=== PATIENT | female | born 1935 | race Caucasian/White ===

== ENCOUNTER → 2016-08-09 | Outpatient (CLI) | payer OTHER, MEDICARE ==
[~2016-08-09] MED LIST: ADULT LOW DOSE81 MG PO; ALEVE220 MG PO; ALLERGY RELIEF25 M2 PO; ALLOPURINOL 30300 M1 PO; ASPIR 8181 MG PO; ASPIRIN; ASPIRIN EC81 M1 PO; ATENOLOL 100MG100 M2 PO; ATENOLOL 100MG100 MG PO; ATENOLOL 50 MG50 M1 PO; ATENOLOL 50MG T50 M1 PO; AUGMENTIN 875-1 EACH PO; AVAPRO300 MG PO; AVAPRO75 MG PO; AYR SALINE50 ML NASAL; BAYER CHEWABLE81 MG PO; BENADRYL25 MG PO; BENICAR 5 MG5 M1 PO; BENICAR20 MG PO; BICARSIM80 MG PO; BIOTIN1 M1 PO; BLINK TEARS OPHTHALMIC; CIPRO500 MG PO; CLOBETASOL; COLACE100 MG PO; COQ-10100 MG PO; COZAAR 25 MG TA25 M1 PO; COZAAR 50 MG TA50 M2 PO; DEMADEX20 MG PO; DOXYCYCLINE 10100 MG PO; EFFIENT10 MG PO; ENOXAPARIN60 MG/0.1 SUBQ; EXFORGE; EXFORGE PO; FERROUS SULFATE PO; FLAGYL500 MG PO; FUROSEMIDE 20 M20 M1 PO; GABAPENTIN 100100 MG PO; GAS-X125 MG PO; HYDROCHLOROTHIA25 M2 PO; HYDROCODONE-AP1 EAC6 PO; IMDUR 60 MG TAB60 M1 PO; IMODIUM A-D2 MG PO; IRBESARTAN300 MG PO; IRON325 PO; ISOSORBIDE MONO30 M1 PO; K-DUR 20 MEQ T20 MEQ PO; KEFLEX250 MG PO; LASIX 20 MG TAB20 MG PO; LASIX 40 MG TAB40 M1 PO; LEVAQUIN 500 M500 M2 PO; LEVOTHYROXIN0.075 MG PO; LEVOTHYROXINE0.05 MG PO; LEVOTHYROXINE500 MCG PO; LIVALO2 MG; MACRODANTIN100 MG PO; MAGOX 400400 MG PO; MOBIC15 MG; MOBIC15 MG PO; MOBIC7.5 MG; MORPHINE 44 MG/1 ML IV PUSH; MULTIVITAMINS PO; MULTIVITAMINS1 EAC7 PO; NABUMETONE 500500 M1 PO; NEURONTIN 300300 M1 PO; NIACIN SR 250250 MG PO; NITROGLYCERIN0.4 MG SUBLING; NITROSTAT0.4 MG SL; NYSTATIN-TRIAMC15 GM; OMEPRAZOLE 20 M20 M1 PO; OMEPRAZOLE20 MG PO; OXCARBAZEPINE150 MG PO; PANTOPRAZOLE SO40 M1 PO; PLAVIX 75 MG TA75 M1 PO; POTASSIUM20 PO; PRALUENT P75 MG/1 ML SQ; PREDNISONE 10 M10 M1 PO; PREDNISONE 10 M10 MG PO; PROBIOTIC1 EAC1 PO; PROTONIX40 M1 PO; TIZANIDINE HCL 22 M1 PO; TRAMADOL 50 MG50 MG PO; TRIAMTERENE-HC1 EAC3 PO; TRILEPTAL150 MG PO; TYLENOL325 MG PO; ULTRAM 50MG TAB50 MG PO; XOPENEX 0.63 MG/3 M1 INH; ZOFRAN 4 MG ORAL4 MG DISSOLVE
== END ==
LOC: RAD 01:05
DX: C50.912 Malignant neoplasm of unspecified site of left female breast (principal)

== ENCOUNTER → 2016-11-02 | Outpatient (CLI) | payer OTHER, MEDICARE ==
[~2016-11-02] VITALS: Ht 152.4 cm; Wt 82.2 kg
[~2016-11-02] MED LIST changes: +AVAPRO 150 MG150 MG PO; +NEURONTIN100 MG PO
--- NOTE | ~2016-11-02 | HPC ---
[facility] [place] [address] PAIN MANAGEMENT CONSULTATION Name: JACK FAN Room #: REG CLЕлена Albert#: [id number] Admission: 11/02/16 Attend Phys: Rafi Laguerre DO Discharge: Date of : 34 Report #: [id number] THIS REPORT FOR: //name// CC: Ghassan Laguerre DATE OF SERVICE: 11/02/2016 The patient is a pleasant 81-year-old female, prior seen for symptomatic lumbar radiculopathy, component of neuropathic pain requiring complex medication management. She had had a lumbar epidural injection back in January with about 60% improvement of baseline pain. On 08/18/2016, she had a repeat injection at L5-S1. We continued Trileptal 150 mg at bedtime at that time. This was for more neuropathic component, bilateral lower extremities. The patient returns to pain clinic today. We had a prolonged visit reviewing therapeutic options. In the interval since I last saw her, lumbar radicular pain did get better following the injection, but with out any antecedent trauma nor overuse, she has developed pain in a little different pattern. This is more in the left hip, anterior thigh. She uses a cane in her right hand for balance, but mostly when she is outside at the home; inside the home, she gets about fairly well. She takes tramadol p.r.n. for pain. She has been stable on oxcarbazepine for neuropathic pain component bilateral lower extremities. We had switched from gabapentin due to some lower extremity swelling. She subsequently was worked up by cardiovascular consultants and found some atherosclerotic peripheral vascular disease, which was addressed. She has now been informed by her insurance company that they will no longer pay for the oxcarbazepine. She notes that the burning dysesthesia in her feet has gotten better with oxcarbazepine. We elected to trial rotating back to gabapentin. A therapeutic equivalent should be roughly 300 mg at bedtime. I took the liberty of writing for 100 mg gabapentin 3 tablets at bedtime for a week, we may increase to 1 in the morning with 3 at night if needed. PHYSICAL EXAMINATION: Otherwise shows pleasant 81-year-old female, BMI is 35.4 kilograms per meter squared. Blood pressure is 149/67, pulse 72, respirations are 18. Alert and oriented to person, place and time, judged to be a reasonable historian. Rises from chair using armrest, modestly antalgic gait. Does have objective decreased left hip flexion strength about 3/5, all other muscle groups about 4/5. Patellar reflex diminished on the left compared to the right. Straight leg raise is negative. Jaspal test is negative. Diffuse tenderness across the low back. No discrete trigger points are noted. ASSESSMENT #1: Neuropathic pain, bilateral lower extremities requiring complex [facility] [address] [place] [address] PAIN MANAGEMENT CONSULTATION Name: JACK FAN ANN Room #: REG CL Bety#: [id number] Admission: 11/02/16 Attend Phys: Rafi Laguerre DO Discharge: Date of : 34 Report #: [id number] medication management. RECOMMENDATION: 1. Discontinue Trileptal (oxcarbazepine), we will reinstitute gabapentin 100 mg 3 tablets at bedtime for 1 week, increasing to 1 in the morning and 3 at night, dispensed 120 tablets with 2 refills. 2. Tramadol 50 mg as needed for pain, 1 tablet 2-3 times a day, limit 90 tablets with 2 refills. ASSESSMENT #2: Acute exacerbation of lumbar radiculopathy, a little more proximal pathology with more L3 distribution. RECOMMENDATION: 1. Lumbar epidural injection under fluoroscopy today at L2-L3. 2. Resume Plavix tomorrow, follow up simply as needed. PROCEDURE NOTE: Lumbar epidural injection under fluoroscopy. PROCEDURE NOTE: After both written and informed consent to include risk of spinal cord damage, increased pain, weakness and dural puncture, the patient was taken to the fluoroscopy suite, placed in the prone position. After sterile prep and drape, a skin wheal with lidocaine was raised. A 22-gauge epidural Tuohy needle was inserted in the midline at L2-L3 with good loss to resistance. Negative aspiration for cerebrospinal fluid or blood was noted. Then 1 mL of Omnipaque under biplanar fluoroscopy showed good spread within the epidural space. This was followed with 80 mg of triamcinolone plus 1 mL of 1.5% preservative-free Xylocaine, 0.5 mL Xylocaine was then injected to flush the needle; it was removed. The patient was monitored for an appropriate period of time and discharged in good and stable condition. <ELECTRONICALLY SIGNED> By: Rafi Laguerre DO 11/03/16 0704 1211 1439 Rafi Laguerre DO /nt
[2016-11-02 10:38] VITALS: BP 149/67
== END ==
LOC: PAIN 07:04
DX: M54.16 Radiculopathy, lumbar region (principal); I10 Essential (primary) hypertension; Z87.891 Personal history of nicotine dependence

== ENCOUNTER 2017-01-31 19:22 | Inpatient (IN) | payer OTHER, MEDICARE ==
[~2017-01-31] VITALS: Ht 152.4 cm; Wt 77.0 kg
--- NOTE | ~2017-01-31 | 2DMMODE ---
[facility] [address] [place] [address] 2 D/M-MODE ECHOCARDIOGRAM Name: JACK FAN ANN Room #: 451-P ADM IN M.R.#: [id number] Admission: 01/31/17 Attend Phys: Winsome Garcia Discharge: Date of : 34 Date of Service: 02/01/17 1254 Report #: [id number] THIS REPORT FOR: //name// APPROVED REPORT Study performed: 02/01/2017 09:18:20 EXAM: Comprehensive 2D, Doppler, and color-flow Echocardiogram Patient Location: Echo lab Room #: [facility] Status: routine Other Information Study Quality: Technically Difficult Indications Syncope 2D Dimensions RVDd: 32.37 mm LVEF(%): 62.56 (>50%) IVSd: 11.40 (7-11mm) LVOT Diam: 17.92 (18-24mm) LVDd: 40.34 mm PWd: 10.85 (7-11mm) Ascending Ao: 29.15 (22-36mm) LVDs: 26.89 (25-40mm) Aortic Root: 28.47 mm IVC: 1.70 mm Terry's LVEF: 62.56 % Volumes Left Atrial Volume (Systole) Single Plane 4CH: 66.03 mL Single Plane 2CH: 44.72 mL LA ESV Index: 33.00 mL/m2 Aortic Valve AoV Peak Shaan.: 1.24 m/s AO Peak Gr.: 6.15 mmHg LVOT Max P.86 mmHg LVOT Max V: 0.98 m/s SILVINA Vmax: 2.00 cm2 Mitral Valve E/A Ratio: 0.9 MV Decel. Time: 326.38 ms MV E Max Shaan.: 1.15 m/s MV A Shaan.: 1.35 m/s MV PHT: 94.65 ms IVRT: 106.11 ms [facility] [place] [address] 2 D/M-MODE ECHOCARDIOGRAM Name: JACK FAN Room #: 451-P [facility] IN .R.#: [id number] Admission: 01/31/17 Attend Phys: Winsome Garcia Discharge: Date of : 34 Date of Service: 02/01/17 1254 Report #: [id number] Pulmonary Valve PV Peak Shaan.: 1.05 m/s PV Peak Gr.: 4.38 mmHg Pulmonary Vein P Vein S: 0.45 m/s P Vein A: 0.19 m/s P Vein D: 0.40 m/s P Vein A Dur.: 106.1 msec P Vein S/D Ratio: 1.13 Tricuspid Valve TR Peak Hsaan.: 2.84 m/s RAP Estimate: 5.00 mmHg TR Peak Gr.: 32.34 mmHg PA Pressure: 37.00 mmHg Left Ventricle The left ventricle is normal size. There is normal left ventricular wall thickness. Left ventricular systolic function is mildly decreased. LVEF is 45%. Grade I - abnormal relaxation pattern. Right Ventricle The right ventricle is normal size. The right ventricular systolic function is normal. Atria The left atrium size is mildly dilated The right atrium size is normal. Aortic Valve Aortic valve leaflets are thickened. No aortic regurgitation. There is no aortic valvular stenosis. Mitral Valve Heavy mitral annular calcification, leaflet thickening Mild mitral regurgitation. No evidence of mitral valve stenosis. Tricuspid Valve The tricuspid valve is normal in structure. There is mild tricuspid regurgitation. The right atrial pressure is estimated at 5 mmHg. There is mild pulmonary hypertension with an estimated PAP of 37 mmHg. Pulmonic Valve The pulmonary valve is normal in structure. Trace pulmonic regurgitation. Great Vessels [facility] [address] [place] [address] 2 D/M-MODE ECHOCARDIOGRAM Name: JACK FAN Room #: 451-P [facility] IN M.R.#: [id number] Admission: 01/31/17 Attend Phys: Winsome Garcia Discharge: Date of : 34 Date of Service: 02/01/17 1254 Report #: [id number] The aortic root is normal in size. IVC is normal in size and collapses >50% with inspiration. Pericardium There is no pericardial effusion. <Conclusion> Left ventricular systolic function is mildly decreased. LVEF is 45%. Hypokinesis of mid to distal inferior wall. Grade I - abnormal relaxation pattern. The left atrium size is mildly dilated Aortic valve leaflets are thickened. No aortic valvular stenosis or regurgitation. Heavy mitral annular calcification, mild leaflet thickening. Mild mitral regurgitation. Pulmonary artery pressure of 40mmHg There is no pericardial effusion. <ELECTRONICALLY SIGNED> By: Mello Ramirez MD, [facility] 02/01/17 1254 1254 1254 Mello Ramirez MD, FACC /INF
--- NOTE | ~2017-01-31 | EKG ---
[address] [place] [address] ELECTROCARDIOGRAM REPORT Name: JACK FAN Room #: 451-P ADM IN M.R.#: [id number] Admission: 01/31/17 Attend Phys: Gerard Delvalle MD Discharge: Date of : 34 Report #: [id number] THIS REPORT FOR: //name// [facility] Test Date: 2017-02-01 Test Time: 04:23:13 Pat Name: JACK FAN Department: Room: [facility] P Gender: F Physician Practice Manager: leatha : 1935 Requested By: Mariah Kimbrough Order Number: [id number] MD: Mello Ramirez Measurements Intervals [place] Rate: 73 P: 40 TN: 226 QRS: 0 QRSD: 136 T: 139 QT: 426 QTc: 470 Interpretive Statements Sinus rhythm Prolonged TN interval Probable left atrial enlargement Nonspecific intraventricular conduction delay ST and T wave abnormality Compared to ECG 01/12/2017 02:05:56 No significant change was found Electronically Signed On 02-01-2017 17:36:06 CDT by Mello Ramirez [email or web address] <ELECTRONICALLY SIGNED> By: Mello Ramirez MD, [facility] 02/01/17 1736 0423 0423 Mello Ramirez MD, [facility] /EPI
--- NOTE | ~2017-01-31 | EKG ---
[place] [address] [facility] [email or web address] [address] ELECTROCARDIOGRAM REPORT Name: JACK FAN ANN Room #: 451-P ADM IN M.R.#: [id number] Admission: 01/31/17 Attend Phys: Gerard Delvalle MD Discharge: Date of : 34 Report #: [id number] THIS REPORT FOR: //name// [facility] ED Test Date: 2017-01-31 Test Time: 19:30:50 Pat Name: JACK FAN Department: Room: [facility] Gender: F It Service Delivery Manager: ROWAN : 1935 Requested By: Lawrence Yang Order Number: [id number] MD: Mello Ramirez Measurements Intervals [place] Rate: 67 P: -32 MS: 201 QRS: -3 QRSD: 109 T: 133 QT: 458 QTc: 484 Interpretive Statements Sinus rhythm ST and T wave abnormality Borderline prolonged QT interval Compared to ECG 01/12/2017 02:05:56 ST (T wave) deviation less pronounced Electronically Signed On 02-01-2017 17:28:52 CDT by Mello Ramirez [email or web address] <ELECTRONICALLY SIGNED> By: Mello Ramirez MD, [facility] 02/01/17 1728 29 29 Mello Ramirez MD, [facility] /EPI
[~2017-01-31 19:22] MED LIST changes: +ALLOPURINOL 30300 M2 PO; +ANTI-GAS40 MG/0.6 PO; +CEFUROXIME250 MG PO; +OPIUM TINC10 MG/1 M1 PO
[2017-01-31 19:56] LABS: ABSOLUTE NEUTROPHILS 6.9 thou/uL (1.4-8.2); BASOPHILS 0.7 % (0.0-2.0); EOSINOPHILS 2.7 % (0.0-3.0); HEMATOCRIT 30.1 % (37.0-47.0); HEMOGLOBIN 10.4 gm/dL (12.0-15.0); LYMPHOCYTES 15.8 % (24.0-44.0); MCH 30.7 pg (26.0-34.0); MCHC 34.8 g/dL (28.0-37.0); MCV 88.5 fL (80.0-100.0); PLATELET COUNT 250 thou/uL (150-400); POLYS 68.8 % (36.0-66.0); RDW 15.7 % (10.5-14.5)
[2017-01-31 19:58] LABS: MANUAL DIFF NO
[2017-01-31 20:11] LABS: CALCIUM 9.3 mg/dL (8.5-10.1); CREATININE 2.7 mg/dL (0.6-1.0); POTASSIUM 4.1 mmol/L (3.5-5.1)
[2017-01-31 20:18] LABS: ALBUMIN 3.6 g/dL (3.4-5.0); DIRECT BILIRUBIN 0.1 mg/dL (<0.1-0.3); TOTAL BILIRUBIN 0.2 mg/dL (<0.1-1.0); TOTAL PROTEIN 7.3 g/dL (6.4-8.2); TROPONIN-I 0.21 ng/mL (<0.04-0.07)
[2017-01-31] MEDS ORDERED: TRAMADOL 50 MG50 MG PO (21:45)
[2017-01-31] MEDS ORDERED: LOMOTIL TABLET1 EACH PO (21:47)
[2017-01-31 21:58] VITALS: BP 147/45
[2017-01-31 22:52] VITALS: BP 152/58
[2017-02-01 04:51] VITALS: BP 150/65
[2017-02-01 06:32] LABS: HEMATOCRIT 30.5 % (37.0-47.0); HEMOGLOBIN 10.4 gm/dL (12.0-15.0); MCH 30.7 pg (26.0-34.0); MCHC 34.1 g/dL (28.0-37.0); MCV 90.1 fL (80.0-100.0); RBC 3.38 mil/uL (4.20-5.00); RDW 15.6 % (10.5-14.5); WBC 8.5 thou/uL (4.0-11.0)
[2017-02-01 06:39] LABS: CALCIUM 8.9 mg/dL (8.5-10.1); CREATININE 2.1 mg/dL (0.6-1.0); POTASSIUM 4.3 mmol/L (3.5-5.1)
[2017-02-01 07:45] VITALS: BP 120/50
[2017-02-01 11:38] VITALS: BP 140/68
[2017-02-01 15:40] LABS: URINE BILIRUBIN NEGATIVE (Negative); URINE BLOOD 2+ (Negative); URINE COLOR YELLOW; URINE GLUCOSE-RANDOM* NEGATIVE (Negative); URINE KETONES NEGATIVE (Negative); URINE NITRITE NEGATIVE (Negative); URINE PROTEIN (DIPSTICK) TRACE (Negative); URINE SPECIFIC GRAVITY <= 1.005 (1.003-1.035); URINE UROBILINOGEN 0.2 E.U./dl (0.2-1.0)
[2017-02-01 15:49] LABS: BACTERIA >30 Many /HPF (None Seen); CASTS None Seen /LPF (None Seen); CRYSTALS None Seen /LPF (None Seen); SQUAMOUS 0-3 Few /LPF (0-3); URINE WBC >25 Many /HPF (0-5)
[2017-02-01 16:03] VITALS: BP 139/61
[2017-02-01 18:58] VITALS: BP 129/43
[2017-02-02 00:46] VITALS: BP 111/42
[2017-02-02 04:21] VITALS: BP 144/50
[2017-02-02 07:14] VITALS: BP 134/49
[2017-02-02 09:29] LABS: CALCIUM 8.9 mg/dL (8.5-10.1); CREATININE 1.2 mg/dL (0.6-1.0); POTASSIUM 3.9 mmol/L (3.5-5.1)
[2017-02-02 11:30] VITALS: BP 125/81
[2017-02-02] MEDS ORDERED: LEVAQUIN 250 M250 MG PO (14:48)
[2017-02-02 14:52] VITALS: BP 125/81
[2017-02-05] MEDS ORDERED: SIMETHICON CHEW80 M1 PO (16:04)
== END 2017-02-02 16:31 | disposition home health service (06) | DRG 683 ==
LOC: ER 19:22 → EROBS 21:08 → 4W 21:08
PROVIDERS: Family Medicine; Nurse Practitioner; Physician Assistant
DX: N17.9 Acute kidney failure, unspecified (principal); I13.0 Hypertensive heart and chronic kidney disease with heart failure and stage 1 through stage 4 chronic kidney disease, or unspecified chronic kidney disease; I50.32 Chronic diastolic (congestive) heart failure; E87.1 Hypo-osmolality and hyponatremia; E86.1 Hypovolemia; E11.65 Type 2 diabetes mellitus with hyperglycemia; N18.9 Chronic kidney disease, unspecified; E11.22 Type 2 diabetes mellitus with diabetic chronic kidney disease; I25.10 Atherosclerotic heart disease of native coronary artery without angina pectoris; I48.0 Paroxysmal atrial fibrillation; E78.00 Pure hypercholesterolemia, unspecified; E11.51 Type 2 diabetes mellitus with diabetic peripheral angiopathy without gangrene; E03.9 Hypothyroidism, unspecified; E78.5 Hyperlipidemia, unspecified; E86.0 Dehydration; K21.9 Gastro-esophageal reflux disease without esophagitis; M19.90 Unspecified osteoarthritis, unspecified site; Z93.2 Ileostomy status; Z87.891 Personal history of nicotine dependence; Z90.49 Acquired absence of other specified parts of digestive tract; Z95.1 Presence of aortocoronary bypass graft; Z85.828 Personal history of other malignant neoplasm of skin; Z85.3 Personal history of malignant neoplasm of breast; Z87.442 Personal history of urinary calculi; Z79.82 Long term (current) use of aspirin; Z79.899 Other long term (current) drug therapy; Z95.5 Presence of coronary angioplasty implant and graft; Z91.040 Latex allergy status; Z88.2 Allergy status to sulfonamides; Z91.048 Other nonmedicinal substance allergy status; Z81.1 Family history of alcohol abuse and dependence; Z82.49 Family history of ischemic heart disease and other diseases of the circulatory system; Z82.3 Family history of stroke
CPT/HCPCS: 10045

== ENCOUNTER → 2017-02-05 | Outpatient (CLI) | payer OTHER, MEDICARE ==
[~2017-02-05] MED LIST changes: +LEVAQUIN 250 M250 MG PO; +LOMOTIL TABLET1 EACH PO; +SIMETHICON CHEW80 M1 PO
[2017-02-05 12:42] LABS: HEMATOCRIT 25.6 % (37.0-47.0); HEMOGLOBIN 8.7 gm/dL (12.0-15.0); MCH 30.9 pg (26.0-34.0); MCV 90.8 fL (80.0-100.0); RBC 2.81 mil/uL (4.20-5.00); WBC 9.5 thou/uL (4.0-11.0)
[2017-02-05 12:49] LABS: CALCIUM 8.7 mg/dL (8.5-10.1); CREATININE 1.7 mg/dL (0.6-1.0); POTASSIUM 4.4 mmol/L (3.5-5.1)
[2017-02-05 15:44] VITALS: BP 119/50
== END ==
LOC: OPONC 06:28
PROVIDERS: Family Medicine
DX: E86.0 Dehydration (principal)
CPT/HCPCS: 27000

== ENCOUNTER → 2017-02-07 | Outpatient (CLI) | payer OTHER, MEDICARE ==
[2017-02-07 09:20] VITALS: BP 108/39
[2017-02-07 10:04] LABS: HEMATOCRIT 26.1 % (37.0-47.0); HEMOGLOBIN 8.9 gm/dL (12.0-15.0); MCH 30.9 pg (26.0-34.0); MCV 90.9 fL (80.0-100.0); RBC 2.87 mil/uL (4.20-5.00); RDW 16.3 % (10.5-14.5); WBC 8.6 thou/uL (4.0-11.0)
[2017-02-07 10:19] LABS: ALBUMIN 3.1 g/dL (3.4-5.0); CALCIUM 8.6 mg/dL (8.5-10.1); CREATININE 1.5 mg/dL (0.6-1.0); POTASSIUM 4.5 mmol/L (3.5-5.1); TOTAL BILIRUBIN 0.2 mg/dL (<0.1-1.0); TOTAL PROTEIN 5.9 g/dL (6.4-8.2)
== END ==
LOC: OPONC 00:41
PROVIDERS: Family Medicine
DX: E86.0 Dehydration (principal)

== ENCOUNTER → 2017-02-09 | Outpatient (CLI) | payer OTHER, MEDICARE ==
[2017-02-09 09:45] VITALS: BP 115/46
== END ==
LOC: OPONC 01:05
DX: E86.0 Dehydration (principal); R55 Syncope and collapse

== ENCOUNTER → 2017-02-12 | Outpatient (CLI) | payer OTHER, MEDICARE ==
[2017-02-12 09:36] LABS: HEMATOCRIT 27.6 % (37.0-47.0); HEMOGLOBIN 9.5 gm/dL (12.0-15.0); MCH 31.2 pg (26.0-34.0); MCHC 34.4 g/dL (28.0-37.0); MCV 90.9 fL (80.0-100.0); RBC 3.03 mil/uL (4.20-5.00); RDW 16.8 % (10.5-14.5); WBC 10.2 thou/uL (4.0-11.0)
[2017-02-12 09:48] LABS: CALCIUM 8.1 mg/dL (8.5-10.1); CREATININE 1.6 mg/dL (0.6-1.0); POTASSIUM 3.9 mmol/L (3.5-5.1)
[2017-02-12 10:11] VITALS: BP 122/46
== END ==
LOC: OPONC 01:21
PROVIDERS: Family Medicine
DX: E86.0 Dehydration (principal); R55 Syncope and collapse

== ENCOUNTER → 2017-02-14 | Outpatient (CLI) | payer OTHER, MEDICARE ==
[~2017-02-14] MED LIST changes: +TYLENOL EXTRA500 MG PO
[2017-02-14 10:10] VITALS: BP 118/48
== END ==
LOC: OPONC 00:20
DX: E86.0 Dehydration (principal)

== ENCOUNTER → 2017-02-16 | Outpatient (CLI) | payer OTHER, MEDICARE ==
[~2017-02-16] VITALS: Ht 152.4 cm; Wt 80.3 kg
--- NOTE | ~2017-02-16 | HPC ---
[facility] [place] [address] PAIN MANAGEMENT CONSULTATION Name: JACK FAN Room #: REG CLЕлена Navarro.#: [id number] Admission: 02/16/17 Attend Phys: Rafi Laguerre DO Discharge: Date of : 34 Report #: [id number] THIS REPORT FOR: //name// CC: Ghassan Laguerre The patient is an 82-year-old female, prior seen in the pain clinic 11/02/2016. The patient is being treated for lumbar radiculopathy, neuropathic pain requiring complex medication management. She prior had an epidural injection back in January 2016, with overall improvement in baseline pain injection August 2016. We discontinued Trileptal at bedtime and started gabapentin due to some sedation issues. Continue tramadol for pain. I did epidural injection L2-L3 at that time. She returns to the pain clinic today noting that the injection at last visit afforded 80% relief. She was doing well, but she had surgery including an ileostomy 12/06/2016. She was hospitalized for dehydration subsequently, has a port in the right subclavian area. Reviewed her rather extensive interval history. She notes ongoing pain, left hip and groin and L3 distribution remains problematic. She is back taking oxcarbazepine 150 mg b.i.d. Discontinued gabapentin due to lack of efficacy. Continue with some tramadol for pain. PHYSICAL EXAMINATION: Shows an 82-year-old female, BMI is 34.6. Vital signs are stable. Rises from chair using armrest, moderately antalgic gait favoring the left leg with decreased left hip flexion strength and pain in L3 distribution. DIAGNOSTIC: Reviewed MRI from 12/26/2013. Moderate hypertrophic changes at L3-L4 with bilateral facet arthropathy causing left ____ neural foraminal narrowing. ASSESSMENT: Symptomatic lumbar radiculopathy by clinical exam and history. RECOMMENDATION: Lumbar epidural injection under fluoroscopy today, left midline at L3-L4. We will renew tramadol for pain and Trileptal for neuropathic pain component. Followup p.r.n. ASSESSMENT: Symptomatic lumbar radiculopathy. PROCEDURE: Lumbar epidural injection under fluoroscopy. PROCEDURE NOTE: After both written and informed consent to include risk of spinal cord damage, increased pain, weakness and dural puncture, the patient was taken to the fluoroscopy suite, placed in the prone position. After sterile prep and drape, a skin wheal with lidocaine was raised. A 22-gauge epidural Tuohy needle was inserted in the midline at L3-4 with good loss to resistance. Negative aspiration for cerebrospinal fluid or blood was noted. Then 1 mL of [facility] [address] [place] [address] PAIN MANAGEMENT CONSULTATION Name: BRENARMANDOJUAN ANTONIO Room #: BASIM Albert#: [id number] Admission: 02/16/17 Attend Phys: Rafi Laguerre DO Discharge: Date of : 34 Report #: [id number] Omnipaque under biplanar fluoroscopy showed good spread within the epidural space. This was followed with 80 mg of triamcinolone plus 1 mL of 1.5% preservative-free Xylocaine, 0.5 mL Xylocaine was then injected to flush the needle; it was removed. The patient was monitored for an appropriate period of time and discharged in good and stable condition. By: 1147 1356 Rafi Laguerre DO /nt
[2017-02-16 13:02] VITALS: BP 140/59
[2017-02-16 17:57] VITALS: BP 120/53
== END | disposition home or self-care (01) ==
LOC: OPONC 01:08 → PAIN 01:08 → OPONC 06:57
DX: M54.16 Radiculopathy, lumbar region (principal); Z68.34 Body mass index [BMI] 34.0-34.9, adult; M48.06 Spinal stenosis, lumbar region; G62.9 Polyneuropathy, unspecified; Z87.891 Personal history of nicotine dependence
CPT/HCPCS: 95000; 95001

== ENCOUNTER → 2017-02-19 | Outpatient (CLI) | payer OTHER, MEDICARE ==
[2017-02-19 09:45] VITALS: BP 150/64
[2017-02-19 10:34] LABS: HEMATOCRIT 24.9 % (37.0-47.0); HEMOGLOBIN 8.4 gm/dL (12.0-15.0); MCH 30.3 pg (26.0-34.0); MCHC 33.7 g/dL (28.0-37.0); MCV 89.9 fL (80.0-100.0); RBC 2.77 mil/uL (4.20-5.00); WBC 11.1 thou/uL (4.0-11.0)
[2017-02-19 10:52] LABS: ALBUMIN 3.5 g/dL (3.4-5.0); CALCIUM 7.4 mg/dL (8.5-10.1); CREATININE 1.7 mg/dL (0.6-1.0); POTASSIUM 3.6 mmol/L (3.5-5.1); TOTAL BILIRUBIN 0.5 mg/dL (<0.1-1.0); TOTAL PROTEIN 7.1 g/dL (6.4-8.2)
== END ==
LOC: OPONC 06:21
PROVIDERS: Family Medicine
DX: E86.0 Dehydration (principal)

== ENCOUNTER → 2017-02-22 | Outpatient (CLI) | payer OTHER, MEDICARE ==
[2017-02-22 09:45] VITALS: BP 128/34
== END ==
LOC: OPONC 01:17
DX: E86.0 Dehydration (principal)

== ENCOUNTER → 2017-02-26 | Outpatient (CLI) | payer OTHER, MEDICARE ==
[2017-02-26 13:23] VITALS: BP 147/66
== END ==
LOC: OPONC 07:52
DX: E86.0 Dehydration (principal); R55 Syncope and collapse

== ENCOUNTER → 2017-03-01 | Outpatient (CLI) | payer OTHER, MEDICARE ==
[2017-03-01 09:40] VITALS: BP 155/70
== END ==
LOC: OPONC 02:15
DX: E86.0 Dehydration (principal)

== ENCOUNTER → 2017-03-06 | Outpatient (CLI) | payer OTHER, MEDICARE ==
[2017-03-06 10:33] VITALS: BP 150/69
== END ==
LOC: OPONC 01:07
DX: E86.0 Dehydration (principal)

== ENCOUNTER → 2017-03-09 | Outpatient (CLI) | payer OTHER, MEDICARE | LOC: OPONC 09:15 | DX: E86.0 Dehydration (principal); R55 Syncope and collapse ==

== ENCOUNTER → 2017-03-13 | Outpatient (CLI) | payer OTHER, MEDICARE ==
[2017-03-13 09:46] LABS: ABSOLUTE NEUTROPHILS 5.5 thou/uL (1.4-8.2); BASOPHILS 0.3 % (0.0-2.0); EOSINOPHILS 2.7 % (0.0-3.0); HEMATOCRIT 30.2 % (37.0-47.0); HEMOGLOBIN 10.3 gm/dL (12.0-15.0); LYMPHOCYTES 14.3 % (24.0-44.0); MCV 91.1 fL (80.0-100.0); MONOCYTES 10.8 % (1.0-8.0); PLATELET COUNT 190 thou/uL (150-400); POLYS 71.9 % (36.0-66.0); RBC 3.31 mil/uL (4.20-5.00); RDW 18.6 % (10.5-14.5); WBC 7.6 thou/uL (4.0-11.0)
[2017-03-13 09:47] LABS: MANUAL DIFF NO
[2017-03-13 10:02] LABS: ALBUMIN 3.4 g/dL (3.4-5.0); CALCIUM 8.7 mg/dL (8.5-10.1); CREATININE 1.3 mg/dL (0.6-1.0); POTASSIUM 4.1 mmol/L (3.5-5.1); TOTAL BILIRUBIN 0.5 mg/dL (<0.1-1.0); TOTAL PROTEIN 6.9 g/dL (6.4-8.2)
[2017-03-13 11:25] VITALS: BP 125/67
== END ==
LOC: OPONC 08:52
PROVIDERS: Family Medicine
DX: E11.9 Type 2 diabetes mellitus without complications (principal); E83.110 Hereditary hemochromatosis; E86.0 Dehydration; R55 Syncope and collapse

== ENCOUNTER → 2017-03-16 | Outpatient (CLI) | payer OTHER, MEDICARE ==
[2017-03-16 11:51] VITALS: BP 156/63
== END ==
LOC: OPONC 00:43
DX: E86.0 Dehydration (principal)
CPT/HCPCS: 95000; 95001

== ENCOUNTER → 2017-03-20 | Outpatient (CLI) | payer OTHER, MEDICARE ==
[2017-03-20 09:10] VITALS: BP 145/56
== END ==
LOC: OPONC 07:59
DX: E86.0 Dehydration (principal); R55 Syncope and collapse

== ENCOUNTER → 2017-03-23 | Outpatient (CLI) | payer OTHER, MEDICARE ==
[2017-03-23 08:15] VITALS: BP 126/53
== END ==
LOC: OPONC 07:46
DX: E86.0 Dehydration (principal); R55 Syncope and collapse

== ENCOUNTER → 2017-03-26 | Outpatient (CLI) | payer OTHER, MEDICARE ==
[2017-03-26 09:54] LABS: HEMOGLOBIN 11.2 gm/dL (12.0-15.0); MCH 30.6 pg (26.0-34.0); MCV 92.5 fL (80.0-100.0); RBC 3.67 mil/uL (4.20-5.00); RDW 19.3 % (10.5-14.5); WBC 9.6 thou/uL (4.0-11.0)
[2017-03-26 10:08] LABS: CALCIUM 9.1 mg/dL (8.5-10.1); CREATININE 1.4 mg/dL (0.6-1.0); POTASSIUM 4.3 mmol/L (3.5-5.1)
[2017-03-26 11:39] VITALS: BP 143/56
== END ==
LOC: OPONC 08:30
PROVIDERS: Family Medicine
DX: E86.0 Dehydration (principal); R55 Syncope and collapse

== ENCOUNTER 2017-04-29 11:56 | Emergency (ER) | payer OTHER, MEDICARE ==
[~2017-04-29] VITALS: Ht 170.2 cm; Wt 94.8 kg
--- NOTE | ~2017-04-29 | EKG ---
[address] [address] ELECTROCARDIOGRAM REPORT Name: JACK FAN ANN [id number] Admission: 04/29/17 Attend Phys: Discharge: 04/29/17 Date of : 34 Report #: [id number] THIS REPORT FOR: //name// [facility] ED Test Date: 2017-04-29 Test Time: 12:13:15 Pat Name: JACK FAN Department: Room: Gender: F Salvage Repairer: ELLIOTT : 1935 Requested By: Julianne Guan Order Number: [id number] MD: Mj Rust Measurements Intervals [place] Rate: 94 P: -22 GA: 185 QRS: 4 QRSD: 103 T: 176 QT: 396 QTc: 496 Interpretive Statements Sinus rhythm Anteroseptal infarct, old Compared to ECG 02/01/2017 04:23:13 Myocardial infarct finding now present Early repolarization now present First degree AV block no longer present Intraventricular conduction delay no longer present Electronically Signed On 04-29-2017 20:40:10 CDT by Mj Rust [email or web address] <ELECTRONICALLY SIGNED> By: Mj Rust MD 04/29/17 2040 12 12 Mj Rust MD /EPI
[2017-04-29] MEDS ORDERED: PLAVIX 75 MG TA75 M1 PO (12:49)
[2017-04-29 13:31] LABS: HEMOGLOBIN 10.7 gm/dL (12.0-15.0); MCH 30.6 pg (26.0-34.0); MCHC 33.5 g/dL (28.0-37.0); MCV 91.3 fL (80.0-100.0); PLATELET COUNT 285 thou/uL (150-400); RDW 17.2 % (10.5-14.5); WBC 10.1 thou/uL (4.0-11.0)
[2017-04-29 13:33] LABS: MANUAL DIFF YES
[2017-04-29 13:40] LABS: ANION GAP 10 mmol/L (7-16); BUN 16 mg/dL (7-18); CALCIUM 9.2 mg/dL (8.5-10.1); CHLORIDE 99 mmol/L (98-107); CO2 26 mmol/L (21-32); GLUCOSE 109 mg/dL (74-106); POTASSIUM 3.2 mmol/L (3.5-5.1); SODIUM 135 mmol/L (136-145)
[2017-04-29 13:49] LABS: TROPONIN-I < 0.04 ng/mL (<0.04-0.07)
[2017-04-29 14:01] LABS: ABSOLUTE NEUTROPHILS 7.9 thou/uL (1.4-8.2); TOTAL CELL COUNT 100
[2017-04-29 14:02] LABS: ANISOCYTOSIS 2+
== END 2017-04-29 14:56 | disposition home or self-care (01) ==
LOC: ER 11:56
PROVIDERS: Emergency Medicine
DX: I11.0 Hypertensive heart disease with heart failure (principal); I50.9 Heart failure, unspecified; R06.00 Dyspnea, unspecified; E87.6 Hypokalemia; E78.5 Hyperlipidemia, unspecified; K21.9 Gastro-esophageal reflux disease without esophagitis; M19.90 Unspecified osteoarthritis, unspecified site; E11.9 Type 2 diabetes mellitus without complications; I25.10 Atherosclerotic heart disease of native coronary artery without angina pectoris; F10.99 Alcohol use, unspecified with unspecified alcohol-induced disorder; Z85.3 Personal history of malignant neoplasm of breast; Z90.89 Acquired absence of other organs; Z85.828 Personal history of other malignant neoplasm of skin; Z87.442 Personal history of urinary calculi; Z88.2 Allergy status to sulfonamides; Z91.040 Latex allergy status; Z87.891 Personal history of nicotine dependence

== ENCOUNTER → 2017-08-16 | Outpatient (CLI) | payer OTHER, MEDICARE ==
[~2017-08-16] VITALS: Ht 152.4 cm; Wt 78.5 kg
[~2017-08-16] MED LIST changes: +CARVEDILOL12.5 MG PO; +CELEBREX 200 M200 MG PO; +OXTELLAR XR150 MG PO
--- NOTE | ~2017-08-16 | HPC ---
[facility] [place] [address] PAIN MANAGEMENT CONSULTATION Name: JACK FAN Room #: REG ROBBIE Navarro.#: [id number] Admission: 08/16/17 Attend Phys: Rafi Laguerre DO Discharge: Date of : 34 Report #: [id number] THIS REPORT FOR: //name// CC: Ghassan Laguerre DATE OF SERVICE: 08/16/2017 The patient is a very pleasant 82-year-old female, typically treated for lumbar radiculopathy, neuropathic pain requiring complex medication management. She was last seen in the Pain Clinic on 02/16/2017, given epidural injection at that time, continued on Trileptal for bilateral neuropathic pain (diabetic peripheral neuropathy?). The patient had excellent relief with the injection, greater than 70% relief for 4 months. Pain has gradually begun to recur. She had discontinued her Trileptal, but notes that she does have burning dysesthesia in her feet. She rates her pain an 8 on a VAS. History of osteoarthritis affecting hips and knees. BMI is 33.8 kg/m2. Vital signs stable as noted on the EMR. She has not fallen in the last 3 months, so she does use a cane when she is walking outside of the home. She is hypertensive. MEDICATIONS: List was reconciled. She uses tramadol p.r.n. for pain. PHYSICAL EXAMINATION: Shows modestly antalgic gait with pain radiating primarily into the left leg, again cane in the right hand. Positive straight leg raise on the left with slight decreased left hip flexion strength. Diffuse tenderness across the low back. Lumbar flexion is good. The patient has discontinued Plavix permanently. 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 RECOMMENDATIONS: 1. Resume oxcarbazepine 150 mg 2 tablets at bedtime. 2. Symptomatic lumbar radiculopathy, acute exacerbation of radicular symptoms. RECOMMENDATION: 1. Epidural injection under fluoroscopy today. 2. Follow up simply as needed. PROCEDURE: Lumbar epidural injection under fluoroscopy. [address] [address] PAIN MANAGEMENT CONSULTATION Name: JACK FAN Room #: REG ROBBIE Albert#: [id number] Admission: 08/16/17 Attend Phys: Rafi Laguerre DO Discharge: Date of : 34 Report #: [id number] PROCEDURE NOTE: After both written and informed consent to include risk of spinal cord damage, increased pain, weakness and dural puncture, the patient was taken to the fluoroscopy suite, placed in the prone position. After sterile prep and drape, a skin wheal with lidocaine was raised. A 22-gauge epidural Tuohy needle was inserted in the midline at L3-L4 with good loss to resistance. Negative aspiration for cerebrospinal fluid or blood was noted. Then 1 mL of Omnipaque under biplanar fluoroscopy showed good spread within the epidural space. This was followed with 80 mg of triamcinolone plus 1 mL of 1.5% preservative-free Xylocaine, 0.5 mL Xylocaine was then injected to flush the needle; it was removed. The patient was monitored for an appropriate period of time and discharged in good and stable condition. <ELECTRONICALLY SIGNED> By: Rafi Lgauerre DO 08/20/17 0715 1242 0210 Rafi Laguerre DO /nt
[2017-08-16 10:56] VITALS: BP 132/65
== END | disposition home or self-care (01) ==
LOC: PAIN 06:49
DX: M54.16 Radiculopathy, lumbar region (principal); G89.29 Other chronic pain; M48.061 Spinal stenosis, lumbar region without neurogenic claudication; M17.0 Bilateral primary osteoarthritis of knee; M16.0 Bilateral primary osteoarthritis of hip; Z79.891 Long term (current) use of opiate analgesic; Z87.891 Personal history of nicotine dependence; Z85.828 Personal history of other malignant neoplasm of skin

== ENCOUNTER → 2017-08-23 | Outpatient (CLI) | payer OTHER, MEDICARE | LOC: RAD 01:25 | DX: Z12.31 Encounter for screening mammogram for malignant neoplasm of breast (principal) ==

== ENCOUNTER → 2017-11-01 | Outpatient (CLI) | payer OTHER, MEDICARE ==
[~2017-11-01] VITALS: Ht 152.4 cm; Wt 80.7 kg
--- NOTE | ~2017-11-01 | HPC ---
[facility] [place] [address] PAIN MANAGEMENT CONSULTATION Name: JACK FAN Room #: REG CLЕлена Albert#: [id number] Admission: 11/01/17 Attend Phys: Rafi Laguerre DO Discharge: Date of : 34 Report #: [id number] THIS REPORT FOR: //name// CC: Ghassan Laguerre The patient is a very pleasant 82-year-old female, typically treated for lumbar radiculopathy, neuropathic pain requiring complex medication management. Last visit, we continued the patient on Trileptal for bilateral neuropathic pain (diabetic peripheral neuropathy? ). The patient has had a significantly good relief following epidural injections, 70% relief for 4 months from prior lumbar epidural injection. Last visit 08/16/2017. We repeated lumbar epidural injection under fluoroscopy (L3-L4), 7 days off Plavix. She returns to pain clinic today, we had a prolonged visit. She has been off Plavix for 7 days, anticipating repeat epidural injection. She rates the pain as an 8 on a VAS. She notes last injection again afforded good incremental relief (98% for 2 weeks and then gradual return over the next 4-6 weeks). The patient notes pain is primarily left low back, hip and groin. She has been on Plavix for atherosclerotic peripheral vascular disease. About a year and a half ago, she did have some lower extremity endovascular stents placed. She has been followed by Dr. Lomeli, who has managed her Plavix. She notes she had significant improved function, mental status. She is able to take nabumetone. This has obviously been stopped with the Plavix. Today, she is very desirous of moving forward with therapy, which may enable longer relief. She is very adamant that she does not want back surgery. She has had a colostomy created and taken down. She has had multiple skin superficial cancers removed. She has had the aforementioned atherosclerotic peripheral vascular disease with endovascular stents. PHYSICAL EXAMINATION: Today shows 82-year-old female, BMI is 34.8 kilograms per meter squared. Blood pressure 147/75, pulse 84, respirations are 14. She rises from chair using armrest, modestly antalgic gait, diffuse tenderness across the low back. Lower extremity strength is modestly diminished on left compared to the right. Positive straight leg raise on the left. Reviewed diagnostic findings including MRI of the lumbar spine, somewhat dated from 12/2013. There are multilevel degenerative disk changes. This had progressed from prior study in 2008. She has a borderline stenosis at L4-L5, this has simply gotten worse over time. Again, with the patient very adamant about not wanting back surgery, but desirous of moving forward with something that will give her long-term relief, we talked about therapeutic options. Ultimately, I suggested we trial resuming [address] [address] PAIN MANAGEMENT CONSULTATION Name: JACK FAN Room #: REG ROBBIE Albert#: [id number] Admission: 11/01/17 Attend Phys: Rafi Laguerre DO Discharge: Date of : 34 Report #: [id number] a nonsteroidal anti-inflammatory medication, given history of Plavix, I suggested IBARRA sparing agent (Celebrex 200 mg) once a day. I did note, however, that she should get this filled only after discussing with Dr. Lomeli. The patient notes that her claim review medical director, Dr. Keane, had suggested that she was "okay" to simply discontinue Plavix altogether given that the stent had been greater than a year and a half since placement. The patient notes "I am 82, I am going to from something and I simply cannot live with my current pain." Again today we suggested she start Celebrex 200 mg 1 a day. Continue Trileptal unchanged 150 mg 1 in the morning, 2 at night. Continue tramadol simply on an as needed basis. I did renew the tramadol and provide a prescription for Celebrex with the caveat that she check with Dr. Lomeli before initiating therapy. We had a long discussion today about a spinal cord stimulator as possible therapeutic option. This would be an option if Celebrex does not afford good relief and if she is able to discontinue Plavix long-term. Today, we have elected to repeat epidural injection under fluoroscopy today at L3-L4, follow up when pain began to recur, check with Dr. Lomeli regarding initiating Plavix. Check with Dr. Keane and Dr. Lomeli regarding discontinuing Plavix altogether. The patient was given [employer] video literature regarding spinal cord stimulator for neuropathic pain, lumbar radicular pain. ASSESSMENT: Symptomatic lumbar radiculopathy. PROCEDURE: Lumbar epidural injection under fluoroscopy. PROCEDURE NOTE: After both written and informed consent to include risk of spinal cord damage, increased pain, weakness and dural puncture, the patient was taken to the fluoroscopy suite, placed in the prone position. After sterile prep and drape, a skin wheal with lidocaine was raised. A 22-gauge epidural Tuohy needle was inserted in the midline at L3-4 with good loss to resistance. Negative aspiration for cerebrospinal fluid or blood was noted. Then 1 mL of Omnipaque under biplanar fluoroscopy showed good spread within the epidural space. This was followed with 80 mg of triamcinolone plus 1 mL of 1.5% preservative-free Xylocaine, 0.5 mL Xylocaine was then injected to flush the needle; it was removed. The patient was monitored for an appropriate period of time and discharged in good and stable condition. <ELECTRONICALLY SIGNED> By: Rafi Laguerre DO 11/03/17 0954 1139 1345 Rafi Laguerre DO /nt
[2017-11-01 10:07] VITALS: BP 147/75
== END | disposition home or self-care (01) ==
LOC: PAIN 07:01
DX: M54.16 Radiculopathy, lumbar region (principal); Z79.899 Other long term (current) drug therapy; Z68.34 Body mass index [BMI] 34.0-34.9, adult

== ENCOUNTER → 2018-02-26 | Outpatient (CLI) | payer OTHER, MEDICARE ==
[~2018-02-26] VITALS: Ht 152.4 cm; Wt 81.8 kg
--- NOTE | ~2018-02-26 | HPC ---
[facility] [address] [address] PAIN MANAGEMENT CONSULTATION Name: JACK FAN Room #: REG CL MDelonte.#: [id number] Admission: 02/26/18 Attend Phys: Royce Laguerre DO Discharge: Date of : 34 Report #: [id number] THIS REPORT FOR: //name// CC: Royce Jimenez MD DATE OF SERVICE: 02/26/2018 REFERRING PHYSICIAN: Ghassan Jimenez M.D. CHIEF COMPLAINT: Low back pain, bilateral anterior thigh pain. HISTORY OF PRESENT ILLNESS: As you know, the patient is a very pleasant 83-year-old female who returns today in followup visit, complaining of low back pain, mainly left anterior thigh pain but intermittent right anterior thigh pain. She is also suffering from a recent outbreak of shingles just underneath her breast and around to her back on the left side. She indicates her pain is aching and burning in sensation, places current pain score 8/10, exacerbated with walking, standing, improves with lying down, medications, epidural injections and repositioning. She has returned today in followup visit to undergo epidural injection under fluoroscopic guidance to address lumbar radicular symptoms involving mainly the left lower extremity. ALLERGIES: TAPE and LATEX. CURRENT MEDICATIONS: Celecoxib, Ultram, Demadex, carvedilol, acetaminophen, simethicone, Lomotil, magnesium oxide, omeprazole, aspirin, levothyroxine, isosorbide dinitrate and nitroglycerin. SOCIAL HISTORY: The patient denies tobacco, alcohol or IV or illicit drug use. She is retired. She is accompanied by her who is present in her room today. IMAGING DATA: No new imaging available. PQRS: The patient has osteoarthritis of the low back, bilateral hips and knees. She does not have any rheumatoid arthritis. She has a pain intensity of 8/10. She is a fall risk but has not had a fall in the last 3 months. She is not on blood thinner. She is treated for hypertension. She has not been on opioids for greater than 6 weeks. She has a low risk assessment for opioid abuse. ASSESSMENT OF FUNCTION: A 54/70, severe interference of daily activities secondary to pain. PHYSICAL EXAMINATION: [facility] [address] [place] [address] PAIN MANAGEMENT CONSULTATION Name: JACK FAN Room #: REG [facility].#: [id number] Admission: 02/26/18 Attend Phys: Royce Laguerre DO Discharge: Date of : 34 Report #: [id number] VITAL SIGNS: Blood pressure 133/59, pulse 74 and respiratory rate 18 and unlabored. The patient 99% on room air. Height 5 feet tall, weight 180.4 pounds and BMI calculated 35.2. GENERAL: Well-developed, well-nourished and well-hydrated 83-year-old female appearing stated age, placing current pain score at 8/10. HEENT: Normocephalic and atraumatic. Pupils equal, round, reactive to light. Extraocular muscles are intact. Sclerae nonicteric without injection. NEUROLOGICAL: Cranial nerves 2 through 12 grossly intact. Speech is fluent. EXTREMITIES: Show no clubbing, no cyanosis and no edema. MUSCULOSKELETAL: The patient is able to rise from the chair using armrests. She is a moderately antalgic gait favoring left lower extremity over right. Diffuse tenderness over the lower back without a specific trigger points. Seated straight leg raising negative. Supine straight leg raising positive on the left. Jaspal's test negative. Muscle bulk and tone symmetrical but deconditioning noted bilaterally. ASSESSMENT: 1. Symptomatic lumbar radiculopathy. 2. Spinal stenosis of the lumbar spine. 3. Displacement of lumbar intervertebral disk with radiculopathy. 4. Lumbosacral spondylosis with radiculopathy. 5. Neural foraminal stenosis of the lumbar spine. 6. Facet arthropathy of the lumbar spine. 7. Degeneration of the lumbar spine. 8. Chronic intractable pain. PLAN: 1. The patient returns today in followup visit requesting to undergo epidural injection under fluoroscopic guidance. She reports good benefit with previous epidural injection, stating approximately 50%-60% improvement in overall pain at present. She returns today requesting epidural injection to build on success of previous intervention. The patient was advised risks and benefits of the procedure, states understood and wished to proceed. 2. No medication changes made at today's visit. The patient will continue current medical therapy as previously prescribed. 3. We will see the patient back in followup visit on an as needed basis for the next in the series of epidural injections. PROCEDURE NOTE DESCRIPTION OF PROCEDURE: L2-L3 lumbar epidural steroid injection under fluoroscopic guidance. After obtaining written consent, the patient was taken back to fluoroscopy suite, placed in prone position with pillow under abdomen to decrease lumbar lordosis. Skin overlying lumbosacral area then prepped and draped in aseptic [facility] [address] [place] [address] PAIN MANAGEMENT CONSULTATION Name: JACK FNA [id number] Admission: 02/26/18 Attend Phys: Royce Laguerre DO Discharge: Date of : 34 Report #: [id number] fashion. The L2-L3 vertebral interspace identified by AP fluoroscopy. Skin and subcutaneous tissue overlying target site of injection was anesthetized with 3 mL of 1% lidocaine. A 20-gauge 3-1/2 inch Tuohy needle advanced under fluoroscopic guidance towards the epidural space using a paramedian approach. Epidural space identified using loss of resistance to air technique. After negative aspiration for heme or cerebrospinal fluid, 1 mL of Omnipaque injected. Lumbar epidurogram was confirmed using both AP and lateral fluoroscopy. After negative aspiration for heme or cerebrospinal fluid, 5 mL of a solution containing 2 mL 40 mg per mL, 80 mg total triamcinolone, 3 mL lidocaine 1% injected slowly. Needle retracted chcf, flushed with 1 mL of 1% lidocaine and removed. Sterile bandage placed over injection site. No new motor deficits present in the lower extremity following procedure. The patient tolerated procedure well, carefully escorted to recovery room in stable condition. No apparent complications. After meeting discharge criteria, the patient discharged home. <ELECTRONICALLY SIGNED> By: Royce Laguerre DO 02/27/18 0839 1534 0239 Royce Laguerre DO /nt
[2018-02-26 14:01] VITALS: BP 133/59
== END | disposition home or self-care (01) ==
LOC: PAIN 07:08
DX: M51.16 Intervertebral disc disorders with radiculopathy, lumbar region (principal); M47.27 Other spondylosis with radiculopathy, lumbosacral region; M48.061 Spinal stenosis, lumbar region without neurogenic claudication; M46.96 Unspecified inflammatory spondylopathy, lumbar region; G89.29 Other chronic pain; M19.90 Unspecified osteoarthritis, unspecified site; I11.0 Hypertensive heart disease with heart failure; I50.9 Heart failure, unspecified; Z91.040 Latex allergy status; Z79.899 Other long term (current) drug therapy; Z79.82 Long term (current) use of aspirin; Z87.448 Personal history of other diseases of urinary system; Z87.09 Personal history of other diseases of the respiratory system; Z98.890 Other specified postprocedural states

== ENCOUNTER → 2018-05-28 | Outpatient (CLI) | payer OTHER, MEDICARE ==
[~2018-05-28] VITALS: Ht 152.4 cm; Wt 85.7 kg
[~2018-05-28] MED LIST changes: +FLOMAX0.4 MG PO; +UNICOMPLEX M TA1 TA1 PO
--- NOTE | ~2018-05-28 | HPC ---
[facility] [address] [place] [address] PAIN MANAGEMENT CONSULTATION Name: JACK FAN ANN Room #: REG CL MDelonte.#: [id number] Admission: 05/28/18 Attend Phys: Royce Laguerre DO Discharge: Date of : 34 Report #: [id number] THIS REPORT FOR: //name// CC: Royce Jimenez MD DATE OF SERVICE: 05/28/2018 REFERRING PHYSICIAN: Dr. Ghassan Jimenez. CHIEF COMPLAINT: Low back pain and bilateral anterior thigh pain. HISTORY OF PRESENT ILLNESS: As you know, the patient is a pleasant 83-year-old female who returns today in followup visit to undergo epidural injection under fluoroscopic guidance. She reports previous epidural injection providing 90% improvement in overall pain lasting for nearly 6 weeks. Unfortunately, the patient's symptoms have begun to return. She returns today in followup visit to undergo next in the series of epidural injections to build on success of previous intervention. She denies new injury, new trauma or any changes in medical history since our last visit. She returns also to request refills of her tramadol, Celebrex and gabapentin that she takes for pain control. ALLERGIES: TAPE AND LATEX. CURRENT MEDICATIONS: Celecoxib, Ultram, Demadex, carvedilol, acetaminophen, simethicone, Lomotil, magnesium oxide, omeprazole, aspirin, levothyroxine, isosorbide dinitrate, nitroglycerin. SOCIAL HISTORY: The patient denies tobacco, alcohol, IV or illicit drug use. She is retired. She is unaccompanied today. IMAGING: No new imaging available. PQRS: The patient has known osteoarthritis of low back, bilateral hips and knees. No rheumatoid arthritis. She is placing pain intensity today about 8/10. She is not a fall risk, has not had a fall in the last 3 months. She is not on blood thinners. She is treated for hypertension. She is on low dose opioids. She has low risk for opioid addiction. Pain impact score 30/70, moderate. PHYSICAL EXAMINATION: VITAL SIGNS: Blood pressure 117/63, pulse 77, respiratory rate 16 and unlabored. The patient is 95% on room air. Height 5 feet tall, weight 189 pounds, BMI calculated 36.9. GENERAL: Well-developed, well-nourished, well-hydrated, morbidly obese [address] [address] PAIN MANAGEMENT CONSULTATION Name: JACK FAN Room #: REG CLI Bety#: [id number] Admission: 05/28/18 Attend Phys: Royce Laguerre DO Discharge: Date of : 34 Report #: [id number] 83-year-old female appearing stated age, placing current pain score at 8/10. HEENT: Normocephalic, atraumatic. Pupils equal, round, reactive to light. Extraocular muscles are intact. EXTREMITIES: Show no clubbing, no cyanosis, no edema. MUSCULOSKELETAL: The patient is once again able to rise from a chair, but has to use armrests for balance, has moderate antalgic gait favoring left lower extremity over right. Diffuse tenderness over the lumbar spine. Seated straight leg raising negative. Supine straight leg raising positive. ASSESSMENT: 1. Symptomatic lumbar radiculopathy. 2. Spinal stenosis of the lumbar spine. 3. Displacement of lumbar intervertebral disk with radiculopathy. 4. Lumbosacral spondylosis with radiculopathy. 5. Neural foraminal stenosis of the lumbar spine. 6. Facet arthropathy of the lumbar spine. 7. Lumbar degeneration. 8. Chronic intractable pain. PLAN: 1. The patient returns today in followup visit having noted excellent improvement with previous lumbar epidural injection reporting 98-99% improvement in overall pain lasting for nearly 6 weeks. She returns today in followup visit requesting to undergo next in the series in hopes of improving pain. The patient has been advised risks and benefits, states understood and wished to proceed. 2. No medication changes made at today's visit. The patient will continue current medical therapy as previously prescribed. 3. We will see the patient back in followup visit on an as needed basis for next in the series of lumbar epidural injections. 4. The patient was provided prescription of tramadol 50 mg dose 1 tab p.o. t.i.d. p.r.n. pain, #90, 2 refills. 5. Celebrex 200 mg dose 1 tab p.o. q. day, #30, 2 refills. 6. Gabapentin 100 mg dose 2 tabs b.i.d., #120, 2 refills. PROCEDURE NOTE DESCRIPTION OF PROCEDURE: L2-L3 lumbar epidural steroid injection under fluoroscopic guidance. After obtaining written consent, the patient was taken back to fluoroscopy suite, placed in prone position with pillow under abdomen to decrease lumbar lordosis. Skin overlying lumbosacral area then prepped and draped in aseptic fashion. The L2-L3 vertebral interspace identified by AP fluoroscopy. Skin and subcutaneous tissue overlying target site of injection anesthetized with 3 mL of 1% lidocaine. [address] [address] PAIN MANAGEMENT CONSULTATION Name: JACK FAN Room #: REG ROBBIE Albert#: [id number] Admission: 05/28/18 Attend Phys: Royce Laguerre DO Discharge: Date of : 34 Report #: [id number] A 20-gauge 3-1/2 inch Tuohy needle advanced under fluoroscopic guidance towards the epidural space using a parasagittal approach. Epidural space identified using loss of resistance to air technique. After negative aspiration for heme or cerebrospinal fluid, 1 mL of Omnipaque injected. Lumbar epidurogram confirmed using both AP and lateral fluoroscopy. After negative aspiration for heme or cerebrospinal fluid, 5 mL of a solution containing 2 mL 40 mg per mL, 80 mg total triamcinolone, 3 mL lidocaine 1% injected slowly. Needle retracted group home, flushed with 1 mL of 1% lidocaine and removed. Sterile bandage placed over injection site. No new motor deficits present in lower extremity following procedure. The patient tolerated the procedure well, carefully escorted to the recovery room in stable condition. No apparent complications. After meeting discharge criteria, the patient discharged home. By: 0833 1512 Royce Laguerre DO /nt
[2018-05-28 12:44] VITALS: BP 117/63
== END ==
LOC: PAIN 04-17 11:16
DX: M51.16 Intervertebral disc disorders with radiculopathy, lumbar region (principal); M48.061 Spinal stenosis, lumbar region without neurogenic claudication; M47.27 Other spondylosis with radiculopathy, lumbosacral region; M46.96 Unspecified inflammatory spondylopathy, lumbar region; G89.29 Other chronic pain; I10 Essential (primary) hypertension; M19.90 Unspecified osteoarthritis, unspecified site; Z79.82 Long term (current) use of aspirin; Z91.040 Latex allergy status; Z87.891 Personal history of nicotine dependence; Z79.899 Other long term (current) drug therapy; Z88.2 Allergy status to sulfonamides; Z87.440 Personal history of urinary (tract) infections

== ENCOUNTER 2018-06-19 10:37 | Inpatient (IN) | payer OTHER, MEDICARE ==
[~2018-06-19] VITALS: Ht 160 cm; Wt 81.6 kg
--- NOTE | ~2018-06-19 | EKG ---
[place] [address] [facility] [place] [address] ELECTROCARDIOGRAM REPORT Name: JACK FAN Room #: 419-P ADM IN M.R.#: [id number] Admission: 06/19/18 Attend Phys: Rj Gardner MD Discharge: Date of : 34 Report #: [id number] THIS REPORT FOR: //name// [facility] Test Date: 2018-06-20 Test Time: 07:41:29 Pat Name: JACK FAN Department: Room: 419 P Gender: F Medical Collections Specialist: NADIYA : 1935 Requested By: London Fleming Order Number: [id number] MD: Mello Ramirez Measurements Intervals [place] Rate: 85 P: 47 MT: 187 QRS: -5 QRSD: 114 T: 155 QT: 430 QTc: 512 Interpretive Statements Sinus rhythm LVH with IVCD and secondary repol abnrm Prolonged QT interval Compared to ECG 06/19/2018 11:06:51 No significant change was found Electronically Signed On 06-20-2018 8:05:34 CARPENTERS SUPERVISOR by Mello Ramirez [email or web address] <ELECTRONICALLY SIGNED> By: Mello Ramirez MD, [facility] 06/20/18804 0 Mello Ramirez MD, [facility] /EPI
--- NOTE | ~2018-06-19 | EKG ---
[address] [address] ELECTROCARDIOGRAM REPORT Name: JACK FAN ANN Room #: 464-P DIS IN M.R.#: [id number] Admission: 06/19/18 Attend Phys: Rj Gardner MD Discharge: 06/22/18 Date of : 34 Report #: [id number] THIS REPORT FOR: //name// [facility] Test Date: 2018-06-21 Test Time: 13:26:21 Pat Name: JACK FAN Department: Room: 464 Gender: F Javascript Front End Developer: Ana GUILLAUME : 1935 Requested By: Mulu Ya Order Number: [id number] MD: Mj Rust Measurements Intervals [place] Rate: 85 P: 57 [place]: 185 QRS: -14 QRSD: 108 T: 146 QT: 396 QTc: 471 Interpretive Statements Sinus rhythm Incomplete left bundle branch block LVH with secondary repolarization abnormality Compared to ECG 06/20/2018 07:41:29 Left bundle-branch block now present Intraventricular conduction delay no longer present Prolonged QT interval no longer present Electronically Signed On 06-23-2018 20:24:18 DIGITAL ANALYTICS MANAGER by Mj Rust [email or web address] <ELECTRONICALLY SIGNED> By: Mj Rust MD 06/23/182023 132 25 Mj Rust MD /EPI
--- NOTE | ~2018-06-19 | EKG ---
[place] [address] [facility] [place] [address] ELECTROCARDIOGRAM REPORT Name: MENGJUAN ANTONIO Room #: [facility] [id number] Admission: 06/19/18 Attend Phys: Discharge: Date of : 34 Report #: [id number] THIS REPORT FOR: //name// [facility] ED Test Date: 2018-06-19 Test Time: 11:06:51 Pat Name: JACK FAN Department: Room: Gender: F Aviation Project Engineer: : 1935 Requested By: Lawrence Yang Order Number: [id number] MD: Mj Rust Measurements Intervals [place] Rate: 79 P: -24 PA: 179 QRS: 7 QRSD: 122 T: 145 QT: 432 QTc: 496 Interpretive Statements Sinus rhythm Left bundle branch block Baseline wander in lead(s) V2 Compared to ECG 04/29/2017 12:13:15 Left bundle-branch block now present Myocardial infarct finding no longer present Electronically Signed On 06-19-2018 13:03:39 GIFTED PROGRAM TEACHER by Mj Rust [email or web address] <ELECTRONICALLY SIGNED> By: Mj Rust MD 06/19/18 1303 1106 05 Mj Rust MD /LILIAM
[2018-06-19 10:38] VITALS: BP 120/101
[2018-06-19] MEDS ORDERED: BACTRIM DS TAB1 EACH PO (11:07)
[2018-06-19 11:12] LABS: ABSOLUTE NEUTROPHILS 8.6 thou/uL (1.4-8.2); BASOPHILS 0.6 % (0.0-2.0); EOSINOPHILS 0.5 % (0.0-3.0); HEMATOCRIT 41.7 % (37.0-47.0); HEMOGLOBIN 14.2 gm/dL (12.0-15.0); LYMPHOCYTES 5.6 % (24.0-44.0); MCH 32.5 pg (26.0-34.0); MCHC 34.1 g/dL (28.0-37.0); MCV 95.5 fL (80.0-100.0); PLATELET COUNT 233 thou/uL (150-400); POLYS 85.3 % (36.0-66.0); RBC 4.37 mil/uL (4.20-5.00); RDW 13.9 % (10.5-14.5)
[2018-06-19 11:23] LABS: ANION GAP 8 mmol/L (7-16); BUN 30 mg/dL (7-18); CALCIUM 10.4 mg/dL (8.5-10.1); CHLORIDE 101 mmol/L (98-107); CO2 30 mmol/L (21-32); CREATININE 1.5 mg/dL (0.6-1.0); GLUCOSE 116 mg/dL (74-106); POTASSIUM 4.2 mmol/L (3.5-5.1); SODIUM 139 mmol/L (136-145)
[2018-06-19 11:32] LABS: ALBUMIN 3.6 g/dL (3.4-5.0); LIPASE 107 U/L (73-393); SGOT 26 U/L (15-37); SGPT 27 U/L (30-65); TOTAL BILIRUBIN 1.2 mg/dL (<0.1-1.0); TROPONIN-I <0.06 ng/mL (<0.06)
[2018-06-19 13:26] VITALS: BP 185/79
[2018-06-19 21:09] VITALS: BP 161/61
[2018-06-20] VITALS (11 sets, daily range): BP systolic 136–203; BP diastolic 54–86
[2018-06-20 05:57] LABS: HEMATOCRIT 39.2 % (37.0-47.0); HEMOGLOBIN 13.2 gm/dL (12.0-15.0); MCH 32.6 pg (26.0-34.0); MCHC 33.8 g/dL (28.0-37.0); MCV 96.6 fL (80.0-100.0); RBC 4.06 mil/uL (4.20-5.00); RDW 14.3 % (10.5-14.5)
[2018-06-20 06:07] LABS: CALCIUM 9.5 mg/dL (8.5-10.1); CREATININE 1.3 mg/dL (0.6-1.0); POTASSIUM 3.9 mmol/L (3.5-5.1)
[2018-06-21 04:52] VITALS: BP 168/63
[2018-06-21 07:28] VITALS: BP 178/70
[2018-06-21 13:55] VITALS: BP 182/73
[2018-06-21 14:45] VITALS: BP 152/69
[2018-06-21 19:53] VITALS: BP 146/80
[2018-06-22 05:00] VITALS: BP 161/53
[2018-06-22 06:38] LABS: FOLIC ACID 24.4 ng/mL (8.6-58.9)
[2018-06-22 08:57] VITALS: BP 180/63
[2018-06-22 14:15] VITALS: BP 180/63
== END 2018-06-22 15:00 | disposition home or self-care (01) | DRG 682 ==
LOC: ER 10:37 → 4E 13:00 → EROBS 13:00 → 4W 13:00 → 4E 13:38 → 4W 06-20 08:37
PROVIDERS: Hospitalist; Nurse Practitioner Family; Physician Assistant
PROC: 0D9670Z Drainage of Stomach with Drainage Device, Via Natural or Artificial Opening (ICD-10-PCS; principal; 2018-06-20)
DX: N17.9 Acute kidney failure, unspecified (principal); E43 Unspecified severe protein-calorie malnutrition; K56.609 Unspecified intestinal obstruction, unspecified as to partial versus complete obstruction; I13.0 Hypertensive heart and chronic kidney disease with heart failure and stage 1 through stage 4 chronic kidney disease, or unspecified chronic kidney disease; Z90.49 Acquired absence of other specified parts of digestive tract; N18.4 Chronic kidney disease, stage 4 (severe); M19.90 Unspecified osteoarthritis, unspecified site; E11.51 Type 2 diabetes mellitus with diabetic peripheral angiopathy without gangrene; I25.10 Atherosclerotic heart disease of native coronary artery without angina pectoris; I50.9 Heart failure, unspecified; I48.0 Paroxysmal atrial fibrillation; I65.29 Occlusion and stenosis of unspecified carotid artery; I25.5 Ischemic cardiomyopathy; M62.84 Sarcopenia; E11.22 Type 2 diabetes mellitus with diabetic chronic kidney disease; E78.5 Hyperlipidemia, unspecified; K21.9 Gastro-esophageal reflux disease without esophagitis; Z87.442 Personal history of urinary calculi; Z95.1 Presence of aortocoronary bypass graft; Z85.3 Personal history of malignant neoplasm of breast; Z95.5 Presence of coronary angioplasty implant and graft; Z93.3 Colostomy status; Z95.820 Peripheral vascular angioplasty status with implants and grafts; Z93.2 Ileostomy status; Z88.2 Allergy status to sulfonamides; Z87.891 Personal history of nicotine dependence; Z79.82 Long term (current) use of aspirin; Z79.899 Other long term (current) drug therapy; Z90.10 Acquired absence of unspecified breast and nipple
CPT/HCPCS: 10045; 10047; 10183; 10783

== ENCOUNTER 2018-07-12 08:37 | Inpatient (IN) | payer OTHER, MEDICARE ==
[~2018-07-12] VITALS: Ht 152.4 cm; Wt 80.7 kg
[~2018-07-12 08:37] MED LIST changes: +BACTRIM DS TAB1 EACH PO
[2018-07-12 08:40] VITALS: BP 109/52
[2018-07-12] MEDS ORDERED: BIOTIN1 MG PO (08:59)
[2018-07-12 09:17] LABS: HEMATOCRIT 33.2 % (37.0-47.0); HEMOGLOBIN 11.5 gm/dL (12.0-15.0); MCH 33.4 pg (26.0-34.0); MCHC 34.7 g/dL (28.0-37.0); MCV 96.3 fL (80.0-100.0); RBC 3.45 mil/uL (4.20-5.00); RDW 14.3 % (10.5-14.5); WBC 6.5 thou/uL (4.0-11.0)
[2018-07-12 09:19] LABS: BE(vivo) -1.3 mmol/L (-2 to +3); HCO3 22.8 mmol/L (22.0-26.0); sO2 90.4 % (92.0-98.0)
[2018-07-12 09:27] LABS: ANION GAP 9 mmol/L (7-16); BUN 22 mg/dL (7-18); CALCIUM 9.3 mg/dL (8.5-10.1); CHLORIDE 101 mmol/L (98-107); CO2 28 mmol/L (21-32); CREATININE 1.2 mg/dL (0.6-1.0); GLUCOSE 153 mg/dL (74-106); POTASSIUM 3.8 mmol/L (3.5-5.1); SODIUM 138 mmol/L (136-145)
[2018-07-12 09:36] LABS: TROPONIN-I <0.06 ng/mL (<0.06)
[2018-07-12 10:09] LABS: CHOLESTEROL 233 mg/dL (<200); HDL CHOLESTEROL 70 mg/dL (>40); LDL CHOLESTEROL 150 mg/dL (<100); TC:HDL 3.3 Ratio (Not establshd); TRIGLYCERIDE 66 mg/dL (<150); VLDL 13 mg/dL (<40)
[2018-07-12 10:37] VITALS: BP 117/49
[2018-07-12 11:41] VITALS: BP 117/49
[2018-07-12 11:46] LABS: TSH 0.237 uIU/mL (0.358-3.740)
[2018-07-12 11:57] VITALS: BP 156/81
[2018-07-12 12:24] LABS: FOLIC ACID 58.7 ng/mL (8.6-58.9)
--- NOTE | 2018-07-12 15:22 | EKG ---
[place] [address] [facility] [place] [address] ELECTROCARDIOGRAM REPORT Name: JACK FAN ANN Room #: 428-P ADM IN M.R.#: [id number] Admission: 07/12/18 Attend Phys: Kameron Tuttle Discharge: Date of : 34 Report #: [id number] THIS REPORT FOR: //name// [facility] ED Test Date: 2018-07-12 Test Time: 09:02:58 Pat Name: JACK FAN Department: Room: 428 Gender: F Planer Feeder: ANDRES : 1935 Requested By: Deepak Mancia Order Number: [id number] MD: Mj Rust Measurements Intervals [place] Rate: 82 P: 23 RI: 202 QRS: 0 QRSD: 108 T: 159 QT: 380 QTc: 444 Interpretive Statements Sinus rhythm Incomplete left bundle branch block LVH with secondary repolarization abnormality Anterior Q waves, possibly due to LVH Baseline wander in lead(s) V1,V2 Compared to ECG 06/21/2018 13:26:21 Q waves now present Electronically Signed On 07-12-2018 15:22:20 TWISTER IN by Mj Rust [email or web address] <ELECTRONICALLY SIGNED> By: Mj Rust MD 07/12/18 1522 0902 0902 Mj Rust MD /EPI
[2018-07-12 16:29] VITALS: BP 156/81
--- NOTE | 2018-07-12 19:49 | NUR ---
PT ARRIVED ON UNIT ALERT XS 4 PT STATES NO PAIN. HAS FLU STAFF TO WEAR MASK. WANTS LEFT ANKLE PICTURE OF WOUND AND RIGH OUTER LEG WOUND PICTURE TAKEN 07/13/18
[2018-07-12 20:48] VITALS: BP 142/57
[2018-07-13 03:55] VITALS: BP 132/56
[2018-07-13 06:13] LABS: ABSOLUTE NEUTROPHILS 3.2 thou/uL (1.4-8.2); BASOPHILS 0.3 % (0.0-2.0); EOSINOPHILS 0.1 % (0.0-3.0); HEMATOCRIT 34.1 % (37.0-47.0); HEMOGLOBIN 11.5 gm/dL (12.0-15.0); LYMPHOCYTES 6.7 % (24.0-44.0); MCH 32.3 pg (26.0-34.0); MCHC 33.6 g/dL (28.0-37.0); MONOCYTES 5.2 % (1.0-8.0); PLATELET COUNT 146 thou/uL (150-400); POLYS 87.7 % (36.0-66.0); RBC 3.55 mil/uL (4.20-5.00); RDW 13.6 % (10.5-14.5); WBC 3.7 thou/uL (4.0-11.0)
[2018-07-13 06:37] LABS: CALCIUM 9.1 mg/dL (8.5-10.1); CREATININE 1.1 mg/dL (0.6-1.0); MAGNESIUM 1.7 mg/dL (1.8-2.4); POTASSIUM 3.8 mmol/L (3.5-5.1)
--- NOTE | 2018-07-13 08:07 | NUR ---
ISOLATION FOR FLU. PT IS VERY PLEASANT AND COOPERATIVE. DENIES PAIN. UP AD CARMEL IN ROOM. SAQTBLE ON ROOM AIR. AFEBRILE. NO FURTHER CONCERNS.
[2018-07-13 08:11] VITALS: BP 150/58
--- NOTE | 2018-07-13 08:59 | NUR ---
ASSESMENT COMPLETED. VSS. A/O. C/O ABDOMINAL PAIN. NO NOTED SOA- [address]- TITRATED TO 1L. PT RESTING IN BED AT THIS TIME. DENIES NEEDS AT THIS TIME. WILL CONT. TO MONITOR.
[2018-07-13] MEDS ORDERED: TAMIFLU30 MG PO (11:00)
[2018-07-13 11:29] VITALS: BP 150/58
--- NOTE | 2018-07-13 12:42 | NUR ---
DC ISNTRUCTIONS GIVEN TO PT. PT VERBALIZED UNDERSTANDING. WAITIGN FOR TRANSPORT.
== END 2018-07-13 14:24 | disposition home or self-care (01) | DRG 193 ==
LOC: ER 08:37 → EROBS 09:54 → 4E 11:29
PROVIDERS: Emergency Medicine; Nurse Practitioner; ADMIT Hospitalist
DX: J10.1 Influenza due to other identified influenza virus with other respiratory manifestations (principal); J96.01 Acute respiratory failure with hypoxia; N17.9 Acute kidney failure, unspecified; D69.6 Thrombocytopenia, unspecified; Z66 Do not resuscitate; I25.10 Atherosclerotic heart disease of native coronary artery without angina pectoris; I44.7 Left bundle-branch block, unspecified; E78.5 Hyperlipidemia, unspecified; E11.51 Type 2 diabetes mellitus with diabetic peripheral angiopathy without gangrene; K21.9 Gastro-esophageal reflux disease without esophagitis; M19.90 Unspecified osteoarthritis, unspecified site; I13.10 Hypertensive heart and chronic kidney disease without heart failure, with stage 1 through stage 4 chronic kidney disease, or unspecified chronic kidney disease; E11.22 Type 2 diabetes mellitus with diabetic chronic kidney disease; N18.9 Chronic kidney disease, unspecified; S81.802A Unspecified open wound, left lower leg, initial encounter; G56.00 Carpal tunnel syndrome, unspecified upper limb; E03.9 Hypothyroidism, unspecified; Z88.2 Allergy status to sulfonamides; Z91.048 Other nonmedicinal substance allergy status; Z85.828 Personal history of other malignant neoplasm of skin; Z87.442 Personal history of urinary calculi; Z85.3 Personal history of malignant neoplasm of breast; Z95.5 Presence of coronary angioplasty implant and graft; Z95.820 Peripheral vascular angioplasty status with implants and grafts; Z79.899 Other long term (current) drug therapy; Z79.82 Long term (current) use of aspirin; Z87.891 Personal history of nicotine dependence; X58.XXXA Exposure to other specified factors, initial encounter; Y93.89 Activity, other specified; Y92.89 Other specified places as the place of occurrence of the external cause; Y99.8 Other external cause status
CPT/HCPCS: 10084

== ENCOUNTER 2018-08-19 05:33 | Inpatient (IN) | payer OTHER, MEDICARE ==
[~2018-08-19] VITALS: Ht 152.4 cm; Wt 83.0 kg
[~2018-08-19 05:33] MED LIST changes: +BIOTIN1 MG PO; +CELEBREX 200 M200 M1 PO; +MUPIROCIN22 GM; +SYNTHROID75 MCG PO; +TAMIFLU30 MG PO
[2018-08-19 07:45] LABS: HEMATOCRIT 36.4 % (37.0-47.0); HEMOGLOBIN 12.4 gm/dL (12.0-15.0)
[2018-08-19 07:55] VITALS: BP 152/59
--- NOTE | 2018-08-19 14:12 | NUR ---
ASSESSMENT-PT LIVES AT HOME WITH HER SPOUSE WHO IS HER SAME AGE. PT WALKS ON HER OWN IN THE HOME AND USES A CANE OUTSIDE OF THE HOME. PT DOES HER OWN ADLS. BOTH DRIVE. SHE AN SHARE THE COOKING, CLEANING AND LAUNDRY. PT HAS HAD [facility] IN THE PAST. THEY HAVE 3 GROWN CHILDREN IN THE AREA THAT ARE HELPFUL AND ASSIST NEEDED. FOLLOWING TO ASSIST WITH DC PLANNING.
[2018-08-19 14:41] VITALS: BP 130/77
--- NOTE | 2018-08-19 15:59 | NUR ---
83 YO FEMALE ADMITTED TO 419 BY CART FROM PACU, A&x4, IV INTACT IN R WRIST X2, DERMABOND DRSG'S X4 TO UPPER AND LOWER ABD D/I. IV CONT FLUIDS STARTED, IV PAIN MED GIVEN FOR PAIN OF 10/10. PT ORIENTED TO ROOM/ CALL LIGHT.
[2018-08-19 20:22] VITALS: BP 167/73
--- NOTE | 2018-08-20 02:52 | NUR ---
PPT WAS OBSERVED LYING IN BED ATTHE START OF SHIFT.PT C/O GEN ABD PAIN,MANAGED WITH PO AND IV PAIN MED.TWO AREAS ON HER RAFAEL LOWER AXT NOTED TO HAVE DRSG ON IT,PT STATED THAT SHE HAD SQUAMOUS CELL REMOVED ON HET LEGS,PT STATED THAT SHE HAS AN OPEN AREA UNDER THE DRSG PT REFUSED FOR THIS NURSE TO TAKE DRSG OFF.pT'S ADMITTING ORDER STATED FOR PT TO BE ON MED/SURG/TELE,GOLD WHEEL BLOCKER AND POLISHER ON DUTY NOTIFIED,ORDER NOTED TO CHANGE PT'S ADMIT ORDER TO MED/SURG,ORDER CARRIED OUT.PT UP TO BSC WITH SBA.4 LAP SITES NOTED ON HER ABD WITH DERMABOND,PT ON 2L/NC FOR COMFORT.PT RESTING ON HER BED AT THIS TIME.CALL LIGHT WITHIN REACH.
[2018-08-20 03:59] LABS: CALCIUM 8.6 mg/dL (8.5-10.1); CREATININE 1.1 mg/dL (0.6-1.0); POTASSIUM 3.9 mmol/L (3.5-5.1)
[2018-08-20 04:14] LABS: HEMOGLOBIN 11.2 gm/dL (12.0-15.0); MCH 32.2 pg (26.0-34.0); MCHC 34.9 g/dL (28.0-37.0); MCV 92.3 fL (80.0-100.0); RBC 3.46 mil/uL (4.20-5.00); RDW 13.9 % (10.5-14.5); WBC 13.5 thou/uL (4.0-11.0)
[2018-08-20 04:38] VITALS: BP 113/41
[2018-08-20 07:55] VITALS: BP 137/67
--- NOTE | 2018-08-20 08:46 | O ---
[facility] [place] [address] OPERATIVE REPORT Name: JACK FAN ANN Room #: 419-P ADM IN M.R.#: [id number] Admission: 08/19/18 Attend Phys: Luna Murray MD, Discharge: Date of : 34 Report #: [id number] THIS REPORT FOR: //name// CC: [facility] DATE OF SERVICE: 08/19/2018 PREOPERATIVE DIAGNOSIS: Recurrent incarcerated incisional ventral hernia with recent small-bowel obstruction. POSTOPERATIVE DIAGNOSES: 1. Incarcerated recurrent incisional ventral hernia. 2. Intra-abdominal adhesions. PROCEDURES PERFORMED: 1. Laparoscopic repair of an incarcerated recurrent incisional ventral hernia with mesh. 2. Laparoscopic lysis of adhesions. SURGEON: Luna Murray M.D. BALLET DANCER: None. ANESTHESIA: General endotracheal anesthesia. ESTIMATED BLOOD LOSS: Minimal (less than 5 mL). COMPLICATIONS: None appreciated. SPECIMENS: None. INDICATIONS: The patient is an 83-year-old female with a complicated past surgical history including exploratory laparotomy with Jessica's procedure, followed by an open reversal of her colostomy and diverting ileostomy and then ultimately a takedown of the diverting ileostomy with suture repair of a parastomal hernia. Unfortunately, since that time, the patient has been admitted with a bowel obstruction secondary to an incarcerated loop of small bowel being contained within the recurrent incisional hernia at the site of her diverting loop ileostomy. Luckily, that was able to be partially reduced and her obstruction resolved and she presents today for definitive surgical repair. Intraoperative findings of incarcerated omentum contained within the hernia was encountered that required mesh repair today. DESCRIPTION OF PROCEDURE: After explaining the risks, benefits and alternatives of the procedure with the patient in detail and obtaining consent, the patient [address] [address] OPERATIVE REPORT Name: MENGJUAN ANTONIO Room #: 419-P [facility] IN M.R.#: [id number] Admission: 08/19/18 Attend Phys: Luna Murray MD, Discharge: Date of : 34 Report #: [id number] was brought to the operating room and placed supine on the operating room table. After conducting a thorough timeout procedure verifying correct patient and procedure, the patient was given general endotracheal anesthesia. Once adequate anesthesia was obtained, her SCDs were hooked up to pneumatic compression device and she was given a preoperative dose of antibiotics in line with the SCIP protocol. The patient's abdomen was prepped and draped in a standard surgical sterile fashion. 5 mL of 0.5% Marcaine with epinephrine were used to anesthetize the skin in the left upper quadrant, midclavicular line in the subcostal location. A #15 bladed scalpel was used to create a small skin emily at this location. A 5 mm Visiport was placed over 0 degree 5 mm laparoscope and was introduced through this incision site. Once intra-abdominal placement was verified visually, the obturator for the trocar and laparoscope were both removed and the abdomen was insufflated to 15 mmHg using carbon dioxide gas. The laparoscope was changed to a 5-mm 30-degree laparoscope, which was reintroduced through this trocar. The entire abdomen was evaluated to ensure no injury upon entry. I now placed a 12 mm trocar lateral to the umbilicus in the anterior axillary line in the left flank and an additional 5 mm port in the subxiphoid location. Both trocars were placed under direct vision after anesthetizing the skin at each location with 5 mL of 0.5% Marcaine with epinephrine, and I had created appropriately sized skin nicks using a #15 bladed scalpel. The patient was now placed in Trendelenburg position with the right side elevated and I proceeded to carry out an extensive laparoscopic lysis of adhesions using mainly cold dissection with EndoShears to prevent injury from thermal spread. Luckily, there were no loops of small bowel that were intimately plastered to the posterior aspect of the anterior abdominal wall, which facilitated an easy lysis of adhesions. Ultimately, I encountered the recurrent incisional ventral hernia defect at the site of a prior parastomal hernia at the diverting ileostomy site that had incarcerated omentum. This was reduced back into an intraabdominal location with gentle manual traction and Harmonic scalpel was used to transect this at the level of the abdominal wall. Now that all adhesions had been taken down, the defect itself measured 1.5 x 1.5 cm in dimension. A small stab incision was made overlying the defect and #1 PDS suture was used on a Nathan-Chinedu suture passer device to place two separate [id number] sutures around the defect. Each of these were tied down completely repairing the defect itself. I then selected a piece of 11.[address] mesh with the echo positioning system. This was rolled up, placed in the abdomen through the 12 mm trocar. The Nathan-Chinedu suture passer device was driven directly through the stab incision overlying the hernia defect and through the abdominal wall where the end eyelet of the balloon insufflation tubing was grasped, pulled up to the abdominal wall, cut off and passed off the field. The syringe insufflator was then used to fully inflate the echo scaffolding and hemostat was used to tag this at the skin level externally to hold the entire mesh in close approximation with the posterior aspect in the anterior abdominal wall. The insufflation pressure was reduced to 8 mmHg, and I proceeded to circumferentially fix the mesh into place using the SecureStrap absorbable fixation device at 1 cm intervals around the periphery of [address] [address] OPERATIVE REPORT Name: MENGJACK Room #: 419-P ADM IN M.R.#: [id number] Admission: 08/19/18 Attend Phys: Luna Murray MD, Discharge: Date of : 34 Report #: [id number] the mesh as well as having placed numerous tacks throughout the innermost portion of the mesh as well to hold the entire thing in close approximation with the posterior aspect of the anterior abdominal wall throughout. The balloon tubing was cut at the skin level and the echo scaffolding was removed via the 12 mm trocar. Photodocumentation of the suture repair as well as the corresponding mesh repair was taken and provided to the patient and the permanent medical record. The 12 mm trocar was removed and the fascia was closed using 0 PDS suture on the Nathan-Chinedu suture passer device under direct vision. This was tied down under direct vision. One final evaluation of the intra-abdominal domain showed no further evidence of pathology. We had complete hemostasis with no obstructive findings whatsoever. The abdomen was now fully desufflated. All remaining trocars were removed under direct vision. A 4-0 Monocryl was used in a standard subcuticular fashion for all skin incisions and Dermabond glue was applied to all skin wounds. At the end of the procedure, all instrument, needle and sponge counts were correct. The patient tolerated the procedure without incident, was awakened in the operating room and transitioned to the recovery room in stable condition with no apparent complications. <ELECTRONICALLY SIGNED> By: Luna Murray MD, FACS 08/20/18 0846 [id number] 1346 Luna Murray MD, FACS /nt
--- NOTE | 2018-08-20 10:22 | NUR ---
ASSUMED CARE THIS AM, SHIFT ASSESSMENT DONE, MEDS GIVEN, VSS. REPORTED PAIN, PRN PAIN MEDS GIVEN. OFF O2 NOW, SATURATION IS ABOVE 90%. WOUND CARE CONSULTED FOR LOWER EXTERMITY WOUND. WALKING IN THE HALLWAY. WILL CONTINUE TO ASSESS AND ASSIST WITH ADLs NEEDED.
[2018-08-20 12:43] VITALS: BP 137/67
[2018-08-20 13:16] VITALS: BP 137/67
[2018-08-20 13:37] VITALS: BP 137/67
--- NOTE | 2018-08-20 13:59 | NUR ---
ORDERS RECEIVED FOR EVAL AND TREAT. SPOKE WITH Pt WHO STATES SHE HAS ALREADY BEEN WALKING THE HALLS AND IS JUST WAITING FOR THE NURSE TO DISCHARGE HER TO HOME. WILL DEFER FORMAL P.T. EVAL AT THIS TIME
[2018-08-20 14:21] VITALS: BP 137/67
--- NOTE | 2018-08-20 14:51 | NUR ---
I have reviewed and concur with student documentation.
--- NOTE | 2018-08-20 15:16 | NUR ---
WOUND CONSULT: PT. WAS SEEN TODAY BY DR. HERNANDEZ AND MYSELF. PT. HAS A ULCERATION TO HER LEFT LEARY FROM A SQUAMIOUS CELL REMOVAL. WOUND BED IS 60% SLOUGH COVERED AT THIS TIME. PLAN WILL BE FOR PT. TO HAVE HOME HEALTH FOR WOUND CARE AND FOLLOW UP IN THE WOUND CLINIC ON A OUTPAIENT BASIS.
--- NOTE | 2018-08-21 07:22 | NUR ---
PATIENT WAS DISCHARGED PRIOR TO PATIENT BEING EVALUATED BY OT.
--- NOTE | 2018-08-21 18:58 | HC ---
[facility] [place] [address] CONSULTATION Name: JACK FAN Room #: 419-P [facility] IN M.R.#: [id number] Admission: 08/19/18 Attend Phys: Luna Murray MD, Discharge: 08/20/18 Date of : 34 Report #: [id number] THIS REPORT FOR: //name// CC: Luna Jimenez DATE OF SERVICE: 08/20/2018 CHIEF COMPLAINT: Surgical wound to both lower extremities following Mohs procedure. HISTORY OF PRESENT ILLNESS: This is an 83-year-old female patient who was admitted to the hospital for a laparoscopic repair of an incarcerated ventral hernia with mesh and lysis of adhesions. She is ready to go home. She, in her past history, is known to have had two areas of squamous cell carcinoma; one to her left pretibial region and then the other to her right medial ankle. The areas have been nonhealing for the last 7 months. I have been asked to see her with regard to wound care. She is scheduled to go home today. PAST MEDICAL HISTORY: Positive for history of colostomy, history of urinary retention, congestive heart failure, healthcare-associated pneumonia, history of acute renal failure, syncope and dehydration. ALLERGIES: SULFA. MEDICATIONS: Include ipratropium and albuterol, aspirin, carvedilol, Celebrex, clopidogrel, diphenhydramine, enoxaparin, pantoprazole, torsemide and tramadol. SOCIAL HISTORY: Negative for alcohol or tobacco use. She is , lives at home with her . FAMILY HISTORY: Noncontributory. REVIEW OF SYSTEMS: CONSTITUTIONAL: The patient denies fever, chills or weight loss. NEUROLOGIC: The patient denies focal weakness, numbness or tingling. EYES: The patient denies visual changes, redness or drainage. ENT: The patient denies earache, nasal drainage or sore throat. CARDIOVASCULAR: The patient denies chest pain, palpitations or diaphoresis. PULMONARY: The patient denies cough or shortness of breath. GASTROINTESTINAL: The patient denies nausea, vomiting or abdominal pain. ORTHOPEDIC: The patient does note some mild swelling of her legs as well as the ulcerations on her left pretibial region and right medial ankle. Other systems in a 14-point review of systems are negative. PHYSICAL EXAMINATION: [facility] [address] [place] [address] CONSULTATION Name: JACK FAN Room #: 419-P DIS IN M.R.#: [id number] Admission: 08/19/18 Attend Phys: Luna Murray MD, Discharge: 08/20/18 Date of : 34 Report #: [id number] VITAL SIGNS: At this time include temperature 36.7, pulse 63, respiratory rate of 18 and blood pressure 137/67. GENERAL: This is a chronically ill-appearing female patient, who appears to be in minimal distress. HEENT: Head is normocephalic. Nose and throat clear. NECK: Supple. LUNGS: Clear. ABDOMEN: Slightly tender around the surgical sites, but no guarding or rebound noted. EXTREMITIES: Lower extremities demonstrate diminished yet palpable distal pulses. SKIN: [place], warm and dry. There is a circular ulceration on the left pretibial region. There is moderate fibrin present that is easily scrubbed away with a 4 x 4 gauze. The right medial ankle shows a very small area, likely previously opened, is slightly erythematous, but it is actually epithelialized. CLINICAL IMPRESSION: 1. Surgical wounds to both left pretibial region and right medial ankle following Mohs procedure for excision of squamous cell carcinoma. 2. History of congestive heart failure. 3. History of healthcare associated-pneumonia. 4. Status post laparoscopic repair of ventral hernia. RECOMMENDATIONS: At this point in time, the patient has indicated to me that she was told that all cancer issues have been resolved with the Mohs procedure and that no further adjunctive therapy will be required. She has not had regular followup, however, with her dermatological surgeon. At this point in time, we will recommend Medihoney and gauze or Xeroform to the pretibial region with a 2-layer compression bandage on the left leg. The right leg would be benefited by support stockings or Tubigrip stockings and a moisturizer as the area is technically closed. We will ask home health to see her at home 3 days a week for dressing changes and we would like to see her in our office for followup in about 2 weeks. I do appreciate being asked to see her in consultation. <ELECTRONICALLY SIGNED> By: Dave Chew MD 08/21/18 1858 [id number] [id number] Dave Chew MD /nt
== END 2018-08-20 14:34 | disposition home or self-care (01) | DRG 336 ==
LOC: TBA 05:33 → OR 05:33 → TBA 05:34 → 4E 12:42 → OR 12:42 → 4E 12:43 → OR 13:02 → ENTRNSPT 08-20 14:25 → EDTRNSPTSTS 08-20 14:28 → 4E 08-20 14:34
PROVIDERS: ADMIT Surgery
PROC: 0DNW4ZZ Release Peritoneum, Percutaneous Endoscopic Approach (ICD-10-PCS; principal; 2018-08-19)
PROC: 0WUF4JZ Supplement Abdominal Wall with Synthetic Substitute, Percutaneous Endoscopic Approach (ICD-10-PCS; principal; 2018-08-19)
DX: K43.0 Incisional hernia with obstruction, without gangrene (principal); N17.9 Acute kidney failure, unspecified; I13.0 Hypertensive heart and chronic kidney disease with heart failure and stage 1 through stage 4 chronic kidney disease, or unspecified chronic kidney disease; K66.0 Peritoneal adhesions (postprocedural) (postinfection); Z66 Do not resuscitate; E78.5 Hyperlipidemia, unspecified; I25.10 Atherosclerotic heart disease of native coronary artery without angina pectoris; T81.89XA Other complications of procedures, not elsewhere classified, initial encounter; C44.92 Squamous cell carcinoma of skin, unspecified; Y83.9 Surgical procedure, unspecified as the cause of abnormal reaction of the patient, or of later complication, without mention of misadventure at the time of the procedure; K21.9 Gastro-esophageal reflux disease without esophagitis; I50.9 Heart failure, unspecified; K43.2 Incisional hernia without obstruction or gangrene; E11.22 Type 2 diabetes mellitus with diabetic chronic kidney disease; E11.51 Type 2 diabetes mellitus with diabetic peripheral angiopathy without gangrene; I48.0 Paroxysmal atrial fibrillation; N18.9 Chronic kidney disease, unspecified; Z87.442 Personal history of urinary calculi; Z79.899 Other long term (current) drug therapy; Z91.040 Latex allergy status; Z88.2 Allergy status to sulfonamides; Z91.048 Other nonmedicinal substance allergy status; Z79.82 Long term (current) use of aspirin; Y92.89 Other specified places as the place of occurrence of the external cause
CPT/HCPCS: 10183; 10783; 50010; 50101; 50249; 50386; 50555; 50558; 50962; 50980; 50984; 52265; 53307; 54022; 54118; 56462; 56525; 56526; 57092; 62110; 62900; 70005

== ENCOUNTER → 2018-08-29 | Outpatient (CLI) | payer OTHER, MEDICARE | LOC: HYPER 08-22 09:51 | DX: T81.31XA Disruption of external operation (surgical) wound, not elsewhere classified, initial encounter (principal); L97.822 Non-pressure chronic ulcer of other part of left lower leg with fat layer exposed; E78.00 Pure hypercholesterolemia, unspecified; I25.119 Atherosclerotic heart disease of native coronary artery with unspecified angina pectoris; I10 Essential (primary) hypertension; I73.9 Peripheral vascular disease, unspecified; M19.90 Unspecified osteoarthritis, unspecified site; Z85.828 Personal history of other malignant neoplasm of skin; Z90.710 Acquired absence of both cervix and uterus; Z79.01 Long term (current) use of anticoagulants; Z87.891 Personal history of nicotine dependence; Z95.1 Presence of aortocoronary bypass graft; Z79.82 Long term (current) use of aspirin; Y92.89 Other specified places as the place of occurrence of the external cause; Y83.8 Other surgical procedures as the cause of abnormal reaction of the patient, or of later complication, without mention of misadventure at the time of the procedure ==

== ENCOUNTER → 2018-09-11 | Outpatient (CLI) | payer OTHER, MEDICARE | LOC: HYPER 07:19 | DX: T81.31XD Disruption of external operation (surgical) wound, not elsewhere classified, subsequent encounter (principal); L97.822 Non-pressure chronic ulcer of other part of left lower leg with fat layer exposed; E78.00 Pure hypercholesterolemia, unspecified; I25.119 Atherosclerotic heart disease of native coronary artery with unspecified angina pectoris; I10 Essential (primary) hypertension; I73.9 Peripheral vascular disease, unspecified; K21.9 Gastro-esophageal reflux disease without esophagitis; M19.90 Unspecified osteoarthritis, unspecified site; Z85.828 Personal history of other malignant neoplasm of skin; Z79.01 Long term (current) use of anticoagulants; Z87.891 Personal history of nicotine dependence; Z95.1 Presence of aortocoronary bypass graft; Y83.8 Other surgical procedures as the cause of abnormal reaction of the patient, or of later complication, without mention of misadventure at the time of the procedure ==

== ENCOUNTER → 2018-09-18 | Outpatient (CLI) | payer OTHER, MEDICARE ==
[~2018-09-18] VITALS: Ht 152.4 cm; Wt 85.4 kg
[2018-09-18 11:28] VITALS: BP 145/66
--- NOTE | 2018-09-18 11:31 | NUR ---
Pain Clinic Assessment: 1. History of Osteoarthritis: YES History of Rheumatoid Arthritis: Not Applicable 2. Height: 5 ft. 0 in. 152.4 cm. Weight: 188.2 lb. oz. 85.367 kg. Patient's BMI: 36.8 3. Vital Signs: BP: 145/66 Pulse: 73 Resp: 16 Temp: 02 Sat: 95 ECG Mon: 4. Pain Intensity: 10 5. Fall Risk: Dizziness: N Needs help standing or walking: N Fallen in the last 3 months: N Fall risk comments: 6. Patient on Blood Thinner: None 7. History of Hypertension: Y 8. Opioid Therapy greater than 6 weeks: N Opiate Contract Signed: 9. Risk Assessment Tool Provided: low risk 10. Functional Assessment Tool: 11. Recreational Drug Use: Never Drug Type: Tobacco Use: Former Smoker Tobacco Type: Amount or Packs/day: How Many Years: Alcohol Use: Yes Frequency: Daily Quant: 1
--- NOTE | 2018-09-24 07:50 | HPC ---
[facility] [address] [place] [address] PAIN MANAGEMENT CONSULTATION Name: JACK FAN Room #: REG CL MMaurilio.#: [id number] Admission: 09/18/18 ������������������ Attend Phys: Royce Laguerre DO Discharge: ������������������ Date of : 34 Report #: [id number] THIS REPORT FOR: //name// CC: Royce Jimenez MD DATE OF SERVICE: 09/18/2018 REFERRING PHYSICIAN: Ghassan Jimenez MD. CHIEF COMPLAINT: Low back pain, bilateral anterior thigh pain. HISTORY OF PRESENT ILLNESS: As you know, the patient is a very pleasant 83-year-old female who returns today in followup visit requesting to undergo next in the series of lumbar epidural injections under fluoroscopic guidance. The patient has done very well with previous epidural injections, the most recent providing 100% improvement of pain lasting for nearly 3 months. She returns today stating a pain level of 10/10. Describes the pain as burning and aching, exacerbated with walking and standing, improves with lying down, medications, injections and the seated position. She returns requesting to undergo next in the series of lumbar epidural injections in hopes of improving pain. ALLERGIES: TAPE AND LATEX. CURRENT MEDICATIONS: Celecoxib, Ultram, Demadex, carvedilol, acetaminophen, simethicone, Lomotil, magnesium oxide, pantoprazole, aspirin, levothyroxine, isosorbide dinitrate, nitroglycerin. SOCIAL HISTORY: The patient denies tobacco, alcohol, IV or illicit drug use. She is retired, retired years ago, unaccompanied today. IMAGING: No new imaging available. PQRS: The patient has known osteoarthritic changes of the lumbar spine, bilateral hips and knees. No rheumatoid arthritis. She is placing pain at intensity today at 10/10. She is not a fall risk, has not had a fall in the last 3 months. She is not on blood thinners. She is treated for hypertension. She is not on opioid. She has a low risk for opioid addiction. Pain impact score 30/70 indicating moderate interference of daily activities secondary to pain. PHYSICAL EXAMINATION: VITAL SIGNS: Blood pressure 145/66, pulse 73, respiratory rate 16 and unlabored. The patient is 95% on room air. Height 5 feet tall, weighs 188.[address] [address] PAIN MANAGEMENT CONSULTATION Name: JACK FAN Room #: [facility] [id number] Admission: 09/18/18 ������������������ Attend Phys: Royce Laguerre DO Discharge: ������������������ Date of : 34 Report #: [id number] pounds, BMI calculated at 36.8. GENERAL: Well-developed, well-nourished, well-hydrated exogenously obese 83-year-old female appearing stated age, placing current pain score 10/10. HEENT: Normocephalic, atraumatic. Pupils equal, round, reactive to light. EXTREMITIES: Show no clubbing, no cyanosis, no edema. MUSCULOSKELETAL: Lower extremity strength is equal and symmetrical, though diminished bilaterally due to deconditioning. Seated straight leg raising negative. Supine straight leg raising is positive. Jaspal's test is negative. ASSESSMENT: 1. Symptomatic lumbar radiculopathy. 2. Spinal stenosis of lumbar spine. 3. Displacement of lumbar intervertebral disk with radiculopathy. 4. Lumbosacral spondylosis with radiculopathy. 5. Neural foraminal stenosis of the lumbar spine. 6. Facet arthropathy of the lumbar spine. 7. Lumbar degeneration. 8. Chronic intractable pain. PLAN: 1. The patient returns today in followup visit requesting to undergo the next in the series of epidural injections to address her 10/10 pain. She received 100% improvement in overall pain with previous epidural injection and hopeful to see similar improvement today. We have advised her of the risks and the benefits of this procedure. These risks include but are not necessarily limited to bleeding, bruising, infection, worsening pain, no relief of pain, also risk of temporary or permanent muscle weakness, temporary or permanent nerve damage, possible paralysis and . The patient states understood and wished to proceed. 2. No medication changes made at today's visit. The patient to continue current medical therapy as previously prescribed. 3. We will see the patient back in followup visit on an as needed basis for possible next in the series of lumbar epidural injections. PROCEDURE NOTE: DESCRIPTION OF PROCEDURE: L2-L3 lumbar epidural steroid injection under fluoroscopic guidance. After obtaining written consent, the patient was taken back to fluoroscopy suite, placed in prone position with pillow under abdomen to decrease lumbar lordosis. Skin overlying the lumbosacral area then prepped and draped in aseptic fashion. The L2-L3 vertebral interspace was identified by AP fluoroscopy. Skin and subcutaneous tissue overlying target site of injection anesthetized with 3 mL of 1% lidocaine. [facility] [address] [place] [address] PAIN MANAGEMENT CONSULTATION Name: JACK FAN Room #: REG ROBBIE Albert#: [id number] Admission: 09/18/18 ������������������ Attend Phys: Royce Laguerre DO Discharge: ������������������ Date of : 34 Report #: [id number] A 20-gauge 3-1/2 inch Tuohy needle advanced under fluoroscopic guidance towards the epidural space using a parasagittal approach. Epidural space identified using loss of resistance to air technique. After negative aspiration for heme or cerebrospinal fluid, 1 mL of Omnipaque injected. Lumbar epidurogram was confirmed using both AP and lateral fluoroscopy. After negative aspiration for heme or cerebrospinal fluid, 5 mL of a solution containing 2 mL 40 mg per mL, 80 mg total triamcinolone, 3 mL lidocaine 1% injected slowly. Needle retracted skilled nursing, flushed with 1 mL of 1% lidocaine and then removed. Sterile bandage placed over injection site. No new motor deficits present in the lower extremity following procedure. The patient tolerated procedure well, carefully escorted to recovery room in stable condition. No apparent complications. After meeting discharge criteria, the patient discharged home. ��������������������������������������������� <ELECTRONICALLY SIGNED> ���������������������������������������� By: Royce Laguerre DO ��������������������������������������������� 09/24/18 0750 1112 0147 Royce Laguerre DO /nt
== END | disposition home or self-care (01) ==
LOC: PAIN 07:01
DX: M51.16 Intervertebral disc disorders with radiculopathy, lumbar region (principal); M47.27 Other spondylosis with radiculopathy, lumbosacral region; M48.061 Spinal stenosis, lumbar region without neurogenic claudication; M47.26 Other spondylosis with radiculopathy, lumbar region; G89.29 Other chronic pain; M19.90 Unspecified osteoarthritis, unspecified site; I11.0 Hypertensive heart disease with heart failure; I50.9 Heart failure, unspecified; N17.9 Acute kidney failure, unspecified; Z98.0 Intestinal bypass and anastomosis status; Z91.040 Latex allergy status; Z87.19 Personal history of other diseases of the digestive system; Z88.2 Allergy status to sulfonamides; Z79.899 Other long term (current) drug therapy; Z87.891 Personal history of nicotine dependence; Z79.82 Long term (current) use of aspirin; Z98.890 Other specified postprocedural states

== ENCOUNTER → 2018-09-26 | Outpatient (CLI) | payer OTHER, MEDICARE | LOC: HYPER 06:59 | DX: T81.31XD Disruption of external operation (surgical) wound, not elsewhere classified, subsequent encounter (principal); L97.222 Non-pressure chronic ulcer of left calf with fat layer exposed; I25.10 Atherosclerotic heart disease of native coronary artery without angina pectoris; I10 Essential (primary) hypertension; I73.9 Peripheral vascular disease, unspecified; E78.00 Pure hypercholesterolemia, unspecified; M19.90 Unspecified osteoarthritis, unspecified site; Z79.01 Long term (current) use of anticoagulants; Z85.828 Personal history of other malignant neoplasm of skin; Z95.1 Presence of aortocoronary bypass graft; Z87.891 Personal history of nicotine dependence; Y83.8 Other surgical procedures as the cause of abnormal reaction of the patient, or of later complication, without mention of misadventure at the time of the procedure ==

== ENCOUNTER → 2018-10-18 | Outpatient (CLI) | payer OTHER, MEDICARE | LOC: RAD 12:18 | DX: Z12.31 Encounter for screening mammogram for malignant neoplasm of breast (principal) ==

== ENCOUNTER → 2019-01-27 | Outpatient (CLI) | payer OTHER, MEDICARE | LOC: HYPER 06:34 | DX: S80.12XD Contusion of left lower leg, subsequent encounter (principal); E11.51 Type 2 diabetes mellitus with diabetic peripheral angiopathy without gangrene; I11.0 Hypertensive heart disease with heart failure; I50.9 Heart failure, unspecified; I25.10 Atherosclerotic heart disease of native coronary artery without angina pectoris; I48.0 Paroxysmal atrial fibrillation; E78.00 Pure hypercholesterolemia, unspecified; M19.90 Unspecified osteoarthritis, unspecified site; K21.9 Gastro-esophageal reflux disease without esophagitis; R60.1 Generalized edema; Z79.82 Long term (current) use of aspirin; Z79.01 Long term (current) use of anticoagulants; Z85.828 Personal history of other malignant neoplasm of skin; Z87.891 Personal history of nicotine dependence; X58.XXXD Exposure to other specified factors, subsequent encounter ==

== ENCOUNTER → 2019-02-05 | Outpatient (CLI) | payer OTHER, MEDICARE | LOC: HYPER 06:28 | DX: S80.12XD Contusion of left lower leg, subsequent encounter (principal); E11.51 Type 2 diabetes mellitus with diabetic peripheral angiopathy without gangrene; E11.36 Type 2 diabetes mellitus with diabetic cataract; I11.0 Hypertensive heart disease with heart failure; I50.9 Heart failure, unspecified; I25.10 Atherosclerotic heart disease of native coronary artery without angina pectoris; I48.0 Paroxysmal atrial fibrillation; E78.00 Pure hypercholesterolemia, unspecified; R60.1 Generalized edema; M19.90 Unspecified osteoarthritis, unspecified site; K21.9 Gastro-esophageal reflux disease without esophagitis; Z79.82 Long term (current) use of aspirin; Z79.01 Long term (current) use of anticoagulants; Z85.828 Personal history of other malignant neoplasm of skin; Z95.1 Presence of aortocoronary bypass graft; Z87.891 Personal history of nicotine dependence; X58.XXXD Exposure to other specified factors, subsequent encounter ==

== ENCOUNTER → 2019-02-19 | Outpatient (CLI) | payer OTHER, MEDICARE | LOC: HYPER 06:57 | DX: S80.12XD Contusion of left lower leg, subsequent encounter (principal); E11.51 Type 2 diabetes mellitus with diabetic peripheral angiopathy without gangrene; E11.36 Type 2 diabetes mellitus with diabetic cataract; I11.0 Hypertensive heart disease with heart failure; I50.9 Heart failure, unspecified; I25.10 Atherosclerotic heart disease of native coronary artery without angina pectoris; I48.0 Paroxysmal atrial fibrillation; E78.00 Pure hypercholesterolemia, unspecified; M19.90 Unspecified osteoarthritis, unspecified site; K21.9 Gastro-esophageal reflux disease without esophagitis; R60.1 Generalized edema; Z95.1 Presence of aortocoronary bypass graft; Z79.82 Long term (current) use of aspirin; Z79.01 Long term (current) use of anticoagulants; Z85.828 Personal history of other malignant neoplasm of skin; Z87.891 Personal history of nicotine dependence; X58.XXXD Exposure to other specified factors, subsequent encounter ==

== ENCOUNTER → 2019-03-24 | Outpatient (CLI) | payer OTHER, MEDICARE | LOC: HYPER 06:53 | DX: S80.12XD Contusion of left lower leg, subsequent encounter (principal); E11.51 Type 2 diabetes mellitus with diabetic peripheral angiopathy without gangrene; E11.36 Type 2 diabetes mellitus with diabetic cataract; I11.0 Hypertensive heart disease with heart failure; I50.9 Heart failure, unspecified; I25.10 Atherosclerotic heart disease of native coronary artery without angina pectoris; I48.0 Paroxysmal atrial fibrillation; E78.00 Pure hypercholesterolemia, unspecified; M19.90 Unspecified osteoarthritis, unspecified site; K21.9 Gastro-esophageal reflux disease without esophagitis; R60.1 Generalized edema; Z95.1 Presence of aortocoronary bypass graft; Z79.82 Long term (current) use of aspirin; Z79.01 Long term (current) use of anticoagulants; Z85.828 Personal history of other malignant neoplasm of skin; Z87.891 Personal history of nicotine dependence; X58.XXXD Exposure to other specified factors, subsequent encounter ==

== ENCOUNTER → 2019-08-26 | Outpatient (CLI) | payer OTHER, MEDICARE | END | disposition home or self-care (01) | LOC: SJCVCIMAG 09:51 | DX: I25.89 Other forms of chronic ischemic heart disease (principal); I25.10 Atherosclerotic heart disease of native coronary artery without angina pectoris; I48.91 Unspecified atrial fibrillation; I42.9 Cardiomyopathy, unspecified ==

== ENCOUNTER → 2019-09-23 | Outpatient (CLI) | payer OTHER, MEDICARE | LOC: SJCVC 14:03 | DX: I44.7 Left bundle-branch block, unspecified (principal); R94.31 Abnormal electrocardiogram [ECG] [EKG]; I25.810 Atherosclerosis of coronary artery bypass graft(s) without angina pectoris; I42.9 Cardiomyopathy, unspecified; E78.00 Pure hypercholesterolemia, unspecified; I10 Essential (primary) hypertension; K21.9 Gastro-esophageal reflux disease without esophagitis; Z79.82 Long term (current) use of aspirin; Z79.899 Other long term (current) drug therapy; Z95.1 Presence of aortocoronary bypass graft; Z87.891 Personal history of nicotine dependence ==

== ENCOUNTER → 2019-12-31 | Outpatient (CLI) | payer OTHER, MEDICARE | LOC: HYPER 13:44 | PROVIDERS: ATTEND Emergency Medicine Emergency Medical Services | DX: I70.243 Atherosclerosis of native arteries of left leg with ulceration of ankle (principal); E11.622 Type 2 diabetes mellitus with other skin ulcer; L97.321 Non-pressure chronic ulcer of left ankle limited to breakdown of skin; S80.12XD Contusion of left lower leg, subsequent encounter; E11.51 Type 2 diabetes mellitus with diabetic peripheral angiopathy without gangrene; R60.0 Localized edema; I25.10 Atherosclerotic heart disease of native coronary artery without angina pectoris; E78.00 Pure hypercholesterolemia, unspecified; E11.36 Type 2 diabetes mellitus with diabetic cataract; M19.90 Unspecified osteoarthritis, unspecified site; I11.0 Hypertensive heart disease with heart failure; I50.9 Heart failure, unspecified; K21.9 Gastro-esophageal reflux disease without esophagitis; I48.0 Paroxysmal atrial fibrillation; Z85.828 Personal history of other malignant neoplasm of skin; Z95.1 Presence of aortocoronary bypass graft; Z87.891 Personal history of nicotine dependence; Z79.82 Long term (current) use of aspirin; Z79.01 Long term (current) use of anticoagulants; Z90.710 Acquired absence of both cervix and uterus; Z90.89 Acquired absence of other organs; X58.XXXD Exposure to other specified factors, subsequent encounter ==

== ENCOUNTER → 2020-01-08 | Outpatient (CLI) | payer OTHER, MEDICARE | LOC: HYPER 13:30 | PROVIDERS: ATTEND Emergency Medicine | DX: E11.622 Type 2 diabetes mellitus with other skin ulcer (principal); I70.243 Atherosclerosis of native arteries of left leg with ulceration of ankle; L97.321 Non-pressure chronic ulcer of left ankle limited to breakdown of skin; S80.12XD Contusion of left lower leg, subsequent encounter; R60.0 Localized edema; E11.51 Type 2 diabetes mellitus with diabetic peripheral angiopathy without gangrene; E11.36 Type 2 diabetes mellitus with diabetic cataract; E78.00 Pure hypercholesterolemia, unspecified; E66.9 Obesity, unspecified; I25.119 Atherosclerotic heart disease of native coronary artery with unspecified angina pectoris; I48.0 Paroxysmal atrial fibrillation; I50.9 Heart failure, unspecified; I11.0 Hypertensive heart disease with heart failure; K21.9 Gastro-esophageal reflux disease without esophagitis; M19.90 Unspecified osteoarthritis, unspecified site; Z79.82 Long term (current) use of aspirin; Z85.828 Personal history of other malignant neoplasm of skin; Z79.01 Long term (current) use of anticoagulants; Z87.891 Personal history of nicotine dependence; Z95.1 Presence of aortocoronary bypass graft; Z68.30 Body mass index [BMI] 30.0-30.9, adult; X58.XXXD Exposure to other specified factors, subsequent encounter ==

== ENCOUNTER → 2020-02-03 | Outpatient (CLI) | payer OTHER, MEDICARE | LOC: SJCVCIMAG | PROVIDERS: ATTEND Internal Medicine Cardiovascular Disease | DX: I08.1 Rheumatic disorders of both mitral and tricuspid valves (principal); I44.0 Atrioventricular block, first degree; R94.31 Abnormal electrocardiogram [ECG] [EKG]; I48.91 Unspecified atrial fibrillation; I25.810 Atherosclerosis of coronary artery bypass graft(s) without angina pectoris; I11.0 Hypertensive heart disease with heart failure; I50.9 Heart failure, unspecified; K21.9 Gastro-esophageal reflux disease without esophagitis; I42.9 Cardiomyopathy, unspecified; E78.00 Pure hypercholesterolemia, unspecified; Z79.82 Long term (current) use of aspirin; Z79.899 Other long term (current) drug therapy; Z95.1 Presence of aortocoronary bypass graft; Z82.49 Family history of ischemic heart disease and other diseases of the circulatory system; Z95.5 Presence of coronary angioplasty implant and graft; Z87.891 Personal history of nicotine dependence ==

== ENCOUNTER → 2020-03-02 | Outpatient (CLI) | payer OTHER, MEDICARE | LOC: SJCVCIMAG 08:11 | PROVIDERS: ATTEND Nuclear Medicine Nuclear Cardiology | DX: I70.203 Unspecified atherosclerosis of native arteries of extremities, bilateral legs (principal); I73.9 Peripheral vascular disease, unspecified; I25.10 Atherosclerotic heart disease of native coronary artery without angina pectoris; I10 Essential (primary) hypertension; I48.91 Unspecified atrial fibrillation; E78.00 Pure hypercholesterolemia, unspecified; E11.9 Type 2 diabetes mellitus without complications ==

== ENCOUNTER → 2020-03-15 | Outpatient (CLI) | payer OTHER, MEDICARE | LOC: SJCVC 16:03 | PROVIDERS: ATTEND Internal Medicine Cardiovascular Disease | DX: R94.31 Abnormal electrocardiogram [ECG] [EKG] (principal); I45.4 Nonspecific intraventricular block; I44.0 Atrioventricular block, first degree; I25.5 Ischemic cardiomyopathy; I10 Essential (primary) hypertension; I25.10 Atherosclerotic heart disease of native coronary artery without angina pectoris; Z79.899 Other long term (current) drug therapy; Z87.891 Personal history of nicotine dependence ==

== ENCOUNTER → 2020-03-24 | Outpatient (CLI) | payer OTHER, MEDICARE ==
[~2020-03-24] MED LIST changes: +MAG-OXIDE400 MG PO; +TORSEMIDE10 MG PO
== END ==
LOC: SJCVC 12:16
PROVIDERS: ATTEND Internal Medicine Cardiovascular Disease
DX: R60.9 Edema, unspecified (principal); K21.9 Gastro-esophageal reflux disease without esophagitis; E11.9 Type 2 diabetes mellitus without complications; I25.10 Atherosclerotic heart disease of native coronary artery without angina pectoris; I48.0 Paroxysmal atrial fibrillation; I11.0 Hypertensive heart disease with heart failure; I50.9 Heart failure, unspecified; E78.00 Pure hypercholesterolemia, unspecified; Z79.899 Other long term (current) drug therapy

== ENCOUNTER → 2020-03-30 | Outpatient (CLI) | payer OTHER, MEDICARE | LOC: SJCVC 13:07 | PROVIDERS: ATTEND Internal Medicine Cardiovascular Disease | DX: I45.4 Nonspecific intraventricular block (principal); I25.10 Atherosclerotic heart disease of native coronary artery without angina pectoris; I25.89 Other forms of chronic ischemic heart disease; I25.5 Ischemic cardiomyopathy; I10 Essential (primary) hypertension; Z95.1 Presence of aortocoronary bypass graft ==

== ENCOUNTER 2020-04-01 01:49 | Inpatient (IN) | payer OTHER, MEDICARE ==
[2020-04-01] VITALS (88 sets, daily range): BP systolic 69–141; BP diastolic 25–95
[~2020-04-01] VITALS: Ht 152.4 cm; Wt 86.9 kg
[~2020-04-01 01:49] MED LIST changes: -MAG-OXIDE400 MG PO; -TORSEMIDE10 MG PO
[2020-04-01] MEDS ORDERED: TORSEMIDE10 MG PO (02:34)
[2020-04-01] MEDS ORDERED: MAG-OXIDE400 MG PO (02:34)
[2020-04-01 02:38] LABS: HEMOGLOBIN 10.6 gm/dL (12.0-15.0); MCH 30.2 pg (26.0-34.0); MCHC 32.2 g/dL (28.0-37.0); MCV 93.9 fL (80.0-100.0); PLATELET COUNT 78 thou/uL (150-400); RBC 3.52 mil/uL (4.20-5.00); RDW 19.2 % (10.5-14.5); WBC 5.7 thou/uL (4.0-11.0)
[2020-04-01 02:50] LABS: URINE BILIRUBIN NEGATIVE (Negative); URINE BLOOD 3+ (Negative); URINE CLARITY TURBID; URINE COLOR YELLOW; URINE GLUCOSE-RANDOM* NEGATIVE (Negative); URINE KETONES NEGATIVE (Negative); URINE NITRITE-REFLEX NEGATIVE (Negative); URINE PROTEIN (DIPSTICK) 1+ (Negative); URINE SPECIFIC GRAVITY 1.025 (1.005-1.035); URINE UROBILINOGEN 0.2 E.U./dl (0.2-1.0)
[2020-04-01 02:54] LABS: ANION GAP 11 mmol/L (7-16); BUN 79 mg/dL (7-18); CALCIUM 8.7 mg/dL (8.5-10.1); CHLORIDE 105 mmol/L (98-107); CO2 19 mmol/L (21-32); CREATININE 3.3 mg/dL (0.6-1.0); GLUCOSE 112 mg/dL (74-106); SODIUM 135 mmol/L (136-145); TROPONIN-I <0.06 ng/mL (<0.06)
[2020-04-01 02:56] LABS: POTASSIUM 6.2 mmol/L (3.5-5.1)
[2020-04-01 03:03] LABS: URINE LEUKOCYTES-REFLEX 2+ (Negative)
[2020-04-01 03:05] LABS: CASTS None Seen /LPF (None Seen); CRYSTALS None Seen /LPF (None Seen); MUCUS 4-6 Moderate strn/LPF (None Seen); SQUAMOUS 4-10 Moderate /LPF (0-3); WBC CLUMPS Packed (None Seen)
--- NOTE | 2020-04-01 04:33 | NUR ---
FIRST ATTEMPT AT REPORT NOW WITH NO ANSWER
[2020-04-01 04:36] LABS: ABSOLUTE NEUTROPHILS 3.9 thou/uL (1.4-8.2)
[2020-04-01 04:37] LABS: PLATELET ESTIMATE NORMAL
[2020-04-01 04:57] LABS: CALCIUM 8.7 mg/dL (8.5-10.1); CREATININE 3.2 mg/dL (0.6-1.0); POTASSIUM 5.8 mmol/L (3.5-5.1)
--- NOTE | 2020-04-01 06:35 | NUR ---
PT ARRIVED TO ICU AT 0515 ACCOMPANIED BY KHUSHI, RN FROM ED. PT DROWSY BUT ABLE TO ANSWER ORIENTATION QUESTIONS. SON, HEIDI ALLOWED BACK TO ICU TO GIVE INFORMATION ON PT. SON EXPRESSED FRUSTRATION AND ANSWERED SEVERAL QUESTIONS BY SAYING, "I DON'T KNOW, YOU SHOULD HAVE THAT INFORMATION IN YOUR CHART." DOPAMINE TITRATED DOWN TOLERATED. WILL CONTINUE TO MONITOR.
--- NOTE | 2020-04-01 08:24 | EKG ---
[facility] [place] [address] ELECTROCARDIOGRAM REPORT Name: JACK FAN Room #: 242-P ADM IN M.R.#: [id number] Admission: 04/01/20 Attend Phys: Jeancarlos Mccormick MD Discharge: Date of : 34 Report #: [id number] THIS REPORT FOR: cc: Ghassan Jimenez MD, Rene P. MD Couchonnal, Luis F. MD ~ THIS REPORT FOR: //name// [facility] ED Test Date: 2020-04-01 Test Time: 02:07:37 Pat Name: JACK FAN Department: Room: 242 Gender: F Shipping Order Clerk: SHAYLEE : 1935 Requested By: Deepak Mancia Order Number: [id number] MD: Mj Rust Measurements Intervals [place] Rate: 44 P: -79 IN: 266 QRS: -25 QRSD: 167 T: 110 QT: 561 QTc: 480 Interpretive Statements Sinus rhythm Ventricular premature complex Prolonged IN interval Left bundle branch block Compared to ECG 07/12/2018 09:02:58 Electronically Signed On 04-01-2020 8:24:15 CDT by Mj Rust [email or web address] <ELECTRONICALLY SIGNED> By: Mj Rust MD 04/01/2024 6 6 Mj Rust MD /EPI
[2020-04-01 08:43] LABS: CREATININE 3.1 mg/dL (0.6-1.0); POTASSIUM 5.9 mmol/L (3.5-5.1)
--- NOTE | 2020-04-01 09:25 | NUR ---
chart review. unable to visit with pt rt resting. noted a & o x 2 with confusion and forgetfulness. she brought in by family/daughter. reported that she had couple weeks ago and had ct scan but cont to decline and not feel well. lives in house, has children in area. had past [facility] in past. needing o2 per nasal cannula. low temp, needing neeru huger. will cont following as needed for dc needs.
--- NOTE | 2020-04-01 11:53 | NUR ---
Assumed care at 0700, assessment and vital signs completed per icu protocol. Dr. Drummond rounded this am, notified of k level 5.8, voiced he will place orders. Dr. Mccormick rounded, plan of care discussed. RN will continue to monitor.
--- NOTE | 2020-04-01 17:04 | NUR ---
PT GETTING LOW URINE OUTPUT, 15ML/HR. Dr Laureano notified. No new orders given.
--- NOTE | 2020-04-01 19:16 | NUR ---
>>>1709 K+ 5.7. Dr Laureano notified. Gave orders not to recheck lab again or page him about urine output.
--- NOTE | 2020-04-01 20:32 | NUR ---
RISK, BENEFITS, AND ALTERNATIVE TREATMENT DISCUSSED WITH THE PATIENT'S SON. TEACHING GIVEN RELATED TO POSSIBLE COMPLICATIONS SUCH BLEEDING, INFECTION, CLOT, OR VESSEL PERFORATION. INSTRUCTION GIVEN RELATED TO CLABSI PREVENTION WITH LITERATURE PROVIDED. PATIENT VOICES UNDERSTANDING TO THE ABOVE. CONSENT OBTAINED. TRIPLE LUMEN PICC PLACED TO RUE BASILIC VEIN. ONE STICK AND NO COMPLICATIONS. OPTED TO GO WITH PICC DUE TO HER LOW PLATELETS AND CONFUSION. DR GUPTA STATED SHE IS NOT A DIALYSIS CANDIDATE. PICC LENGTH =36CM. EXTERNAL =1CM. TIP OF PICC VERIFIED DISTALS SVC PER CHEST XRAY. RN THANH NOTIFIED OKAY TO USE PICC
[2020-04-02] VITALS (94 sets, daily range): BP systolic 63–141; BP diastolic 13–97
--- NOTE | 2020-04-02 03:36 | NUR ---
This RN resumed care at 1900. Patient alert and oriented but lethargic. Normal sinus rhythm. BP being maintained with Dopamine gtt. Started on Zosyn and receiving NS at 80mL/hr. This RN spoke to Lynnette,daughter & LUCÍA, 04/01 at 2100 regarding patients status and care. I also set up a facetime on the patients phone so that they could speak together, daughter very grateful. This RN also spoke with Gabo, son, on 04/01 at 2300 regarding patients status and answered all questions. Patient resting now, continueing to monitor.
--- NOTE | 2020-04-02 05:55 | NUR ---
Pts temperature throughout the night stayed consistently at 96.8 degrees F. Bear hugger on and patient feels warm to the touch. Pt remains on Dopamine gtt for blood pressure management. Urine output adequate throughout the night. Pt remains in normal sinus rhythm and satting at 95% on 2L NC.
[2020-04-02 05:56] LABS: HEMATOCRIT 34.1 % (37.0-47.0); MCH 30.1 pg (26.0-34.0); MCHC 32.2 g/dL (28.0-37.0); MCV 93.4 fL (80.0-100.0); RBC 3.64 mil/uL (4.20-5.00); WBC 13.7 thou/uL (4.0-11.0)
[2020-04-02 06:30] LABS: CALCIUM 8.5 mg/dL (8.5-10.1); CREATININE 2.5 mg/dL (0.6-1.0); MAGNESIUM 2.3 mg/dL (1.8-2.4); PHOSPHORUS 4.8 mg/dL (2.5-4.9); POTASSIUM 5.4 mmol/L (3.5-5.1)
--- NOTE | 2020-04-02 14:22 | NUR ---
chart review. she remains requiring o2 per nasal cannula. albert lopez. iv medication and abx. on dopamine for bp. will cont following as needed for dc needs.
--- NOTE | 2020-04-02 17:02 | NUR ---
PT REMAINS DROWSY AND LETHARGIC TODAY. WILL OPEN EYES AND RESPOND TO QUESTIONS BUT FALLS BACK TO SLEEP WITHOUT CONSTANT STIMULATION. PT'S SON AT BEDSIDE THROUGHOUT THE DAY TODAY AND UPDATED. THIS AFTERNOON TEMP DECREASED TO 94. MARSHA LAURA RE-APPLIED. DISCUSSED WITH DR SRIVASTAVA. WEANING DOPAMINE ABLE TO KEEP MAP >60. PT WORKED WITH PHYSICAL AND OCCUPATIONAL THERAPY TODAY. WILL CONTINUE TO MONITOR PATIENT.
[2020-04-03] VITALS (65 sets, daily range): BP systolic 77–147; BP diastolic 30–88
--- NOTE | 2020-04-03 05:02 | NUR ---
ASSUMED PT CARE AT 1900. VSS PT ON DOPAMINE GTT AT 5MCG. DOPAMAINE SUCCESSFULLY TITRATED DOWN TO 1MCG AT 0430AM. PT TOLERATING TITRATION OKAY. PT IS STILL CONFUSED. OREINTED TO SELF AND SITUATION ONLY. OCASSIONALLY YELLS OUT"I WANT TO GO HOME" PT HOWEVER IS IS STABLE AND PROGRESSING WELL TOWARDS POC GOALS.
[2020-04-03 06:15] LABS: ALBUMIN 2.6 g/dL (3.4-5.0); CALCIUM 8.5 mg/dL (8.5-10.1); PHOSPHORUS 2.8 mg/dL (2.5-4.9); POTASSIUM 4.6 mmol/L (3.5-5.1)
[2020-04-03 06:33] LABS: CREATININE 1.5 mg/dL (0.6-1.0)
--- NOTE | 2020-04-03 15:35 | NUR ---
ASSUMED CARE PT SHIFT CHANGE.ASSESSMENTS CHARTED.MEDS GIVEN PER MAR. PT AWAKE, ORIENTED TO PERSON. CONFUSED. VSS. DOPAMINE GTT TITRATED OFF. BP STABLE. SON AT BEDSIDE. DPOA UPDATED ON POC. PT TEMPS REMAINED WNL THIS SHIFT. APPETITE FAIR, UOP ADEQUATE. O2 SATS WNL ON 1L. TX ORDERS RECEIVED. REPORT GIVEN TO WM ON 2N. FAMILY UPDATED ON TX. PT LEFT UNIT WITH ALL BELONGINGS.
--- NOTE | 2020-04-03 18:07 | NUR ---
PT RECEIVED FROM ICU TO RM 201 AT 1545. PT ALERT AND PLEASANT BUT CONFUSED,AND FORGETFUL. NEEDS HELP W/ ADL'S. IV FLUIDS INFUSING. TAKING TEMPERATURES RECTALLY OTHER METHODS NOT REGISTERING. SON HERE FOR A WHILE AND FED PT DINNER. NO C/O PAIN.
--- NOTE | 2020-04-04 03:50 | NUR ---
ASSUMED CARE OF PATIENT AT 1900. AT SHIFT CHANGE PATIENT FOUND TO HAVE BLOOD RUNNING DOWN SIDE OF NOSE. PATIENT APPEARS TO HAVE PICKED SCAB ON NOSE. APPLIED GAUZE DRESSING. PATIENT REMOVED DRESSING MULTIPLE TIMES THROUGH THE NIGHT AND SITE CONTINUED TO BLEED. AT APPROXIMATELY 2030 PATIENT WAS FOUND TO HAVE REMOVED HER RIGHT UPPER ARM PICC DRESSING AND PULLED PICC OUT TO 18CM. NOTIFIED PROVIDER AND OBTAINED ORDER FOR XRAY TO CHECK FOR PICC PLACEMENT. PICC NO LONGER IN POSITION. RECEIVED OK FROM PROVIDER TO CONTINUE USING PICC LINE A PERIPHERAL IV THERE ARE INSTRUCTIONS IN PLACE FOR NO IV STICKS TO BILATERAL ARMS. WRAPPED SITE WITH COBAN WHICH PATIENT ALSO REMOVED MULTIPLE TIMES THROUGH THE NIGHT. PATIENT ALSO REMOVED CARDIAC LEADS FREQUENTLY AND ATTEMPTED TO GET OUT OF BED TO "GO UPSTAIRS". AT APPROXIMATELY 0330 OBTAINED AN ORDER FROM STAFF ANTISUBMARINE OFFICER FOR HALDOL. ADMINISTERED ORDERED. WILL CONTINUE TO MONITOR.
[2020-04-04 04:02] VITALS: BP 152/82
[2020-04-04 04:33] LABS: ALBUMIN 2.8 g/dL (3.4-5.0); CALCIUM 8.7 mg/dL (8.5-10.1); CREATININE 1.3 mg/dL (0.6-1.0); PHOSPHORUS 2.4 mg/dL (2.5-4.9); POTASSIUM 4.4 mmol/L (3.5-5.1)
[2020-04-04 07:05] VITALS: BP 149/85
[2020-04-04 10:33] LABS: MCH 30.1 pg (26.0-34.0); MCHC 33.4 g/dL (28.0-37.0); MCV 90.3 fL (80.0-100.0); PLATELET COUNT 112 thou/uL (150-400); RBC 3.65 mil/uL (4.20-5.00); RDW 18.6 % (10.5-14.5); WBC 13.8 thou/uL (4.0-11.0)
[2020-04-04 10:53] LABS: ABSOLUTE NEUTROPHILS 12.4 thou/uL (1.4-8.2); NUCLEATED RBCS 2 /100WBC; PLATELET ESTIMATE SLIGHTLY DECREASED
[2020-04-04 10:54] LABS: ANISOCYTOSIS 2+; MACROCYTES 1+; MICROCYTES 1+
[2020-04-04 12:02] VITALS: BP 176/110
[2020-04-04 16:00] VITALS: BP 150/92
--- NOTE | 2020-04-04 16:47 | EKG ---
[facility] [address] [address] ELECTROCARDIOGRAM REPORT Name: JACK FAN Room #: 201- ADM IN M.R.#: [id number] Admission: 04/01/20 Attend Phys: Jeancarlos Mccormick MD Discharge: Date of : 34 Report #: [id number] THIS REPORT FOR: cc: Ghassan Jimeenz MD, Rene P. MD Lundgren,Mello Tovar MD [facility] ~ THIS REPORT FOR: //name// [facility] Test Date: 2020-04-04 Test Time: 12:09:02 Pat Name: JACK FAN Department: Room: 201 P Gender: F Design Cell Engineer: Winsome SABA : 1935 Requested By: Jeancarlos Mccormick Order Number: [id number] MD: Mello Ramirez Measurements Intervals [place] Rate: 95 P: 51 WA: 217 QRS: -2 QRSD: 135 T: 186 QT: 409 QTc: 514 Interpretive Statements Sinus rhythm Atrial premature complex Prolonged WA interval Left bundle branch block Compared to ECG 04/01/2020 02:07:37 Atrial premature complex(es) now present Ventricular premature complex(es) no longer present Electronically Signed On 04-04-2020 16:47:12 CDT by Mello Ramirez [email or web address] <ELECTRONICALLY SIGNED> By: Mello Ramirez MD, [facility] 04/04/20 1647 08 08 Mello Ramirez MD, [facility] /EPI
--- NOTE | 2020-04-04 18:46 | NUR ---
ASSUMED CARE AT CHANGE OF SHIFT. ORIENTED X3, SLEEPY AND RESTLY. SOFT MITTEN RESTRAINTS IN PLACE. PT ABLE TO REMOVE. FAMILY BEDSIDE ABLE TO KEEP PT FROM PULLING AT LINES. NOTIFIED PHYSICAIN OF PT LABORED BREATHING WITH CHEST XRAY TAKEN THAT DID NOT SHOW CHANGES. 4L NASAL CANNULA/MOUTH BREATHER. PT IN MARCO ANTONIO GONCALVES. NOTED COUGHING WHEN PT'S FAMILY GAVE WATER. EDUCATED PT IS KEPT NPO DUE TO SEDATIVE STATE AND COUGHING, PHYSICIAN AWARE OF VS, RESPIRATION RATE, NPO. CRITICAL TROPONIN CALLED TO DR ARMSTRONG WITH NO NEW ORDERS. NOT PROGRESSING WELL.
[2020-04-04 20:42] VITALS: BP 161/94
--- NOTE | 2020-04-05 02:14 | NUR ---
ASSESSMENTS CHARTED, MEDS CHARTED GIVEN. PATIENT IN MITTEN RESTRAINTS DURING SHIFT DUE TO PULLING MEDICAL EQUIPMENT. HAD CRITICAL TROPONIN, CONTACTED DR. ARMSTRONG, RECEIVED ORDERS. SPOKE WITH FAMILY TWICE DURING SHIFT TO UPDATE, FAMILY INITIATED CALLS. FALL PRECAUTIONS IN PLACE.
[2020-04-05 05:43] VITALS: BP 142/98
[2020-04-05 05:46] LABS: CALCIUM 9.2 mg/dL (8.5-10.1); CREATININE 1.8 mg/dL (0.6-1.0); MAGNESIUM 2.2 mg/dL (1.8-2.4); POTASSIUM 4.3 mmol/L (3.5-5.1)
[2020-04-05 05:49] LABS: HEMATOCRIT 30.7 % (37.0-47.0); HEMOGLOBIN 10.1 gm/dL (12.0-15.0); MCH 30.3 pg (26.0-34.0); MCV 91.7 fL (80.0-100.0); RBC 3.35 mil/uL (4.20-5.00); RDW 19.2 % (10.5-14.5)
[2020-04-05 08:00] VITALS: BP 161/94
--- NOTE | 2020-04-05 08:08 | EKG ---
[facility] [address] [address] ELECTROCARDIOGRAM REPORT Name: JACK FAN Room #: 201- ADM IN M.R.#: [id number] Admission: 04/01/20 Attend Phys: Jeancarlos Mccormick MD Discharge: Date of : 34 Report #: [id number] THIS REPORT FOR: cc: Ghassan Jimenez MD, Rene P. MD Lundgren,Mello Tovar MD [facility] ~ THIS REPORT FOR: //name// [facility] Test Date: 2020-04-05 Test Time: 07:03:29 Pat Name: JACK FAN Department: Room: 201 Gender: F [place] Laborer: Winsome SABA : 1935 Requested By: Abdulaziz Talamantes Order Number: [id number] MD: Mello Ramirez Measurements Intervals [place] Rate: 83 P: 66 IL: 217 QRS: -2 QRSD: 150 T: 154 QT: 411 QTc: 483 Interpretive Statements Sinus rhythm Ventricular premature complex Borderline prolonged IL interval Left bundle branch block Compared to ECG 04/04/2020 12:09:02 Ventricular premature complex(es) now present Atrial premature complex(es) no longer present Electronically Signed On 04-05-2020 8:08:07 CDT by Mello Ramirez [email or web address] <ELECTRONICALLY SIGNED> By: Mello Ramirez MD, [facility] 04/05/20807 2 2 Mello Ramirez MD, [facility] /EPI
[2020-04-05 11:42] VITALS: BP 130/67
--- NOTE | 2020-04-05 12:07 | NUR ---
juan received phone call from daughter toribio dpoa [phone]. juan spoke with her she stated " my brother is the designated visited and i am the dpoa who wants to be included in her care and dcp, there is little family dynamics between me and by kathy. he thinks her fall is my fault. middle brother doesnt want to get involved so, there. i feel like i am a bother to the nurses calling to get the report. i would asked to be visitor but don't want to upset my brother kathy, he had some depression and bipolar. he is fine as visitor as long as he doesnt hinder her care or dcp. i think she will need some rehab" per daughter toribio. cm active listen and support during phone call. juan passed on information to cm team for ccu and unite fabrication supervisor.
[2020-04-05 17:00] VITALS: BP 136/71
--- NOTE | 2020-04-05 17:45 | NUR ---
Dtr left message for casemgt to call her. Sp with dtr. Patients spouse in November. At that time patient moved in with her dtr. Dtr reports at home patient had fallen and hit her head. She was seen by Dr Jimenez on outpatient basis who dtr reports mentioned possible "concussion." Dtr reports patient has been declining since fall. Admitted to hospital to ICU and transferred to CCU. Dtr reports her brother blames her for fall and medically stability at this time. Dtr reports she is allowing brother to be designated visitor to appease him as she does not want to cause increase tension. Her brother is not speaking to her. Dtr is having difficulty obtaining information on patient and feels if they can work out some scenario where she and brother can visit possibly separate times. Sp with brew house supervisor of dtrs request. She will inquire with administration and alert RN. Patient will need post acute care dtr interested in [facility] she has been in past.
[2020-04-05 19:00] VITALS: BP 131/85
--- NOTE | 2020-04-06 00:51 | NUR ---
ASSESSMENTS CHARTED, MEDS CHARTED GIVEN. PATIENT MORE ALERT TONIGHT THAN LAST. PT AWAKE AND FOLLOWING CONVERSATION. ABLE TO ANSWER WITH MINIMAL RESPONSES. MIDDLE OF THE NIGHT PATINET IS IMPULSIVE AND CONFUSED. TRYING TO GET OUT OF BED SEVERAL TIMES TO WASH WINDOWS OR ADJUST TV. PATIENT HAD LARGE BM. DENIED PAIN. FALL PRECAUTIONS IN PLACE DURING SHIFT.
[2020-04-06 05:37] LABS: CALCIUM 8.7 mg/dL (8.5-10.1); CREATININE 1.9 mg/dL (0.6-1.0); MAGNESIUM 2.3 mg/dL (1.8-2.4); POTASSIUM 4.7 mmol/L (3.5-5.1)
[2020-04-06 06:00] VITALS: BP 153/99
[2020-04-06 06:04] LABS: MCH 30.8 pg (26.0-34.0); RBC 3.24 mil/uL (4.20-5.00)
[2020-04-06 06:08] LABS: MCHC 33.2 g/dL (28.0-37.0); MCV 92.6 fL (80.0-100.0); RDW 19.1 % (10.5-14.5); WBC 12.6 thou/uL (4.0-11.0)
[2020-04-06 07:29] VITALS: BP 159/92
[2020-04-06 07:56] VITALS: BP 131/80
--- NOTE | 2020-04-06 09:29 | NUR ---
cm received phone call from son kathy who was talking with a loud voice, i came up there and was told i cant visit, cant believe my sister is playing that card, she the reason mom is in the condition she is in. call her dr العلي he will tell you. my sister is letting people feed mom with out gloves on and we need to keep her covid free. i want to speak with the icu dye house supervisor per rayo chavez. cm active listen, try to educate that would pass on information to 2n dye house supervisor, not in icu so 2n will be support now and pass on information to sw for 2n. i need a call back sunil or security will be called per rayo chavez. cm spoke with to unite dye house supervisor and sw. will cont follow as needed.
[2020-04-06 11:22] VITALS: BP 121/64
--- NOTE | 2020-04-06 11:40 | NUR ---
Spoke with dtr at bedside. She is now designated visitor. RN manageer of unit plans to call son to alert of change. Dtr concerned with her brothers reaction. She has spoken to chief communications officer who advised her to stay at friends and for now will have patrol cars in area. Son has called casemgt staff multiple times and not leaving message. Discussion to make patient confidential. manager client service to f/u on plan for confidential. 5N evaled patient and accepting, updated dtr who is in agreement. Updated [facility].
--- NOTE | 2020-04-06 12:16 | 2DMMODE ---
[facility] [place] [address] [address] [place] [address] 2 D/M-MODE ECHOCARDIOGRAM Name: JACK FAN Room #: 201-P ADM IN M.R.#: [id number] Admission: 04/01/20 Attend Phys: Jeancarlos Mccormick MD Discharge: Date of : 34 Report #: [id number] THIS REPORT FOR: cc: Ghassan Jimenez MD, Rene P. MD Park, Jin S. MD ~ APPROVED REPORT Study performed: 04/06/2020 11:28:09 EXAM: Limited 2D, Doppler, and color-flow Echocardiogram Patient Location: Bedside Room #: 201 Status: routine BSA: 1.78 HR: 61 bpm BP: 131/80 mmHg Rhythm: NSR Other Information Study Quality: Adequate/No patient cooperation. Limited mobility. Indications Worsening BNP, dyspnea. Hx: CABG, Stents, CHF, PAF, HTN, HLP. Aortic Valve AoV Peak Shaan.: 1.08 m/s AO Peak Gr.: 4.65 mmHg Tricuspid Valve TR Peak Shaan.: 3.34 m/s RAP Estimate: 10.00 mmHg TR Peak Gr.: 45.00 mmHg PA Pressure: 55.00 mmHg Left Ventricle The left ventricle is normal size. There is global hypokinesis of the left ventricle. Left ventricular systolic function is severely decreased. LVEF is 20-25%. Right Ventricle Right ventricle is hypokinetic. [facility] [address] [place] [address] 2 D/M-MODE ECHOCARDIOGRAM Name: JACK FAN Room #: 201-P ADM IN M.R.#: [id number] Admission: 04/01/20 Attend Phys: Jeancarlos Mccormick, Discharge: Date of : 34 Report #: [id number] Left atrium is dilated. Right atrium is dilated. Aortic Valve Aortic valve leaflets are thickened and calcified with adequate excursion. No aortic regurgitation is present. Mitral Valve Moderate mitral annular calcification. Moderate mitral regurgitation. Tricuspid Valve The tricuspid valve is normal in structure. Moderate tricuspid regurgitation. Estimated PAP is 55mmHg. Great Vessels IVC is normal in size and collapses <50% with inspiration. Pericardium There is no pericardial effusion. Bilateral pleural effusions. <Conclusion> The left ventricle is normal size. Left ventricular systolic function is severely decreased. LVEF is 20-25%. Left atrium is dilated. Aortic valve leaflets are thickened and calcified with adequate excursion. Moderate mitral regurgitation. Moderate tricuspid regurgitation. Estimated PAP is 55mmHg. <ELECTRONICALLY SIGNED> By: Gilberto Keane MD 04/06/20 1216 15 Gilberto Keane MD /INF
--- NOTE | 2020-04-06 13:54 | NUR ---
ANGRY SON HERE EARLY, CONFRONTATIONAL AND ABUSIVE. PATIENT RESIDES WITH ADULT DTR AT BEDSIDE, STATES HE CAN BE VIOLENT AND IS BIPOLAR. PATIENT IS REPORTEDLY FARING BETTER THAN UPON ADMISSION; STILL GOT HER DOG'S NAME WRONG. SPEECH THERAPY, 5N CONSULTED. NKECHI. SR PER TELE. WILL CONTINUE TO FOLLOW CLOSELY.
[2020-04-06 15:22] VITALS: BP 99/49
--- NOTE | 2020-04-07 03:23 | NUR ---
ASSESSMENTS CHARTED, MEDS CHARTED GIVEN. PATIENT IS BACK IN BED AT START OF SHIFT. DENIED PAIN. STILL ON 4 LITERS NC. CORNEJO TO DEPENDENT DRAINAGE. PATIENT NOW ON MECHANICAL CHOP MEALS WITH SUPPLIMENTS 2 TIMES A DAY. SKIN HAS SCABS AND BRUISES. FALL PRECAUTIONS IN PLACE DURING SHIFT. DAUGHTER HAD BEEN VISITING DURING DAY. PLAN OF CARE IS FOR MRI OF HEAD AND CT OF NECK IN THE AM.
[2020-04-07 06:11] LABS: MCHC 33.6 g/dL (28.0-37.0); MCV 92.3 fL (80.0-100.0); RBC 2.11 mil/uL (4.20-5.00); RDW 18.4 % (10.5-14.5); WBC 15.4 thou/uL (4.0-11.0)
[2020-04-07 06:28] LABS: HEMOGLOBIN 6.5 gm/dL (12.0-15.0)
[2020-04-07 06:30] LABS: HEMATOCRIT 19.5 % (37.0-47.0)
[2020-04-07 06:39] LABS: CALCIUM 8.5 mg/dL (8.5-10.1); CREATININE 2.1 mg/dL (0.6-1.0); MAGNESIUM 2.4 mg/dL (1.8-2.4); POTASSIUM 3.7 mmol/L (3.5-5.1)
[2020-04-07 07:28] LABS: HEMOGLOBIN 6.7 gm/dL (12.0-15.0)
[2020-04-07 07:30] LABS: HEMATOCRIT 20.8 % (37.0-47.0); MCH 29.6 pg (26.0-34.0); MCHC 32.1 g/dL (28.0-37.0); MCV 92.2 fL (80.0-100.0); RBC 2.26 mil/uL (4.20-5.00); RDW 18.1 % (10.5-14.5); WBC 16.3 thou/uL (4.0-11.0)
[2020-04-07 08:00] VITALS: BP 99/59
[2020-04-07 16:10] VITALS: BP 101/44; BP 102/56
--- NOTE | 2020-04-07 17:35 | NUR ---
ASSUMED CARE AT CHANGE OF SHIFT. ORIENT TO SELF, TIME, PLACE, DROWSY/SLEEP.IV TEAM WAS NEEDED TO GET TYPE AND SCREEN AND LABS. CURRENTLY INFUSING 1UNIT OF BLOOD PER ORDERS FOR HGB <7.0. PT BECOMING MORE ALTERT WHILE BLOOD INFUSING. DTR BEDSIDE AND OFFER DINNER OF COTTAGE CHEESE AND PUDDING. 10% IF MORNING AND NOON MEAL CONSUMED. 350 OUTPUT IN CORNEJO, NO BM TODAY. DENIES PAIN, 4L NASAL CANNULA. ASSIST X2 FOR TRANSFERS AND TURNS. STAFF TO ANTICIPATE NEEDS. UNABLE TO DEMONSTRATE CALL LIGHT.
[2020-04-07 19:30] VITALS: BP 102/56
[2020-04-07 21:19] LABS: HEMATOCRIT 24.7 % (37.0-47.0); HEMOGLOBIN 8.2 gm/dL (12.0-15.0)
[2020-04-08 03:46] VITALS: BP 103/46
--- NOTE | 2020-04-08 03:47 | NUR ---
Assumed pt care at 1900. Pt is alert and oriented x2. Pt is stable and not in any acute distress. Denies any pain. Blood transfusion completed. Pt tolerated tranfusion. Fall precaution in place. Assessment completed and documented. Scheduled meds administered to pt. Tolerated PO intake. No acute events overnight. No further needs at this time.
[2020-04-08 06:01] LABS: HEMATOCRIT 22.2 % (37.0-47.0); HEMOGLOBIN 7.5 gm/dL (12.0-15.0); MCH 31.3 pg (26.0-34.0); MCHC 33.9 g/dL (28.0-37.0); MCV 92.5 fL (80.0-100.0); RBC 2.4 mil/uL (4.20-5.00); RDW 16.8 % (10.5-14.5)
[2020-04-08 06:59] LABS: ALBUMIN 2.5 g/dL (3.4-5.0); CALCIUM 8.2 mg/dL (8.5-10.1); CREATININE 1.6 mg/dL (0.6-1.0); PHOSPHORUS 3.9 mg/dL (2.5-4.9)
[2020-04-08 07:29] VITALS: BP 118/55
[2020-04-08 12:02] VITALS: BP 102/33
[2020-04-08 12:47] LABS: HEMATOCRIT 22.2 % (37.0-47.0); HEMOGLOBIN 7.5 gm/dL (12.0-15.0)
[2020-04-08 15:37] VITALS: BP 103/44
--- NOTE | 2020-04-08 17:13 | NUR ---
RECEIVED PT'S CARE AROUND 0730; PT. ON BED; RESTING WITH EYES CLOSED DURING SHIFT CHANGE; SLEEP INTERRUPTED; ALERT; SR ON THE MONITOR; NOTICED HH 7.5 FROM 8; PHYSICIAN NOTIFIED; DURING AM ASSESSMENT PT. AOX4; AM MEDICATION GIVEN WITH BREAKFAST; DAUGHTER AT THE BED SIDE DURING ASSESSMENT; UPDATED ABOUT POC & GOALS THROUGHT THE AFTERNOON; ST. UNDERSTANDING; GONE FOR CT; ABLE TO WORK WITH PT; UP TO THE BED SIDE COMMODE; HAD TWO BMs THROUGH THE DAY; DURING THE AFTERNOON PT. DROWSY; ST. FEELING TIRED; DBP ON THE 30s; MAP 49; PHYSICIAN NOTIFIED; HH ORDERED; HMG 7.5; MONITORING; D/C CORNEJO AT 1645; EDUCATED TO CALL WHEN NEED TO VOID; ST. UNDERSTANDING; ASSESSMENT CHARGED; FOLLOWING POC; WILL PASS ON REPORT;
--- NOTE | 2020-04-08 18:43 | HC ---
[facility] [address] [address] [place] [address] CONSULTATION Name: BRENARMANDOJACK Room #: 210-P [facility] IN M.R.#: [id number] Admission: 04/01/20 Attend Phys: Jeancarlos Mccormick MD Discharge: Date of : 34 Report #: [id number] THIS REPORT FOR: cc: Ghassan Jimenez MD, Rene P. MD Khosla, Parveen K. MD ~ CC: Jeancarlos Jimenez DATE OF SERVICE: 04/06/2020 HISTORY OF PRESENT ILLNESS: This is an 85-year-old female patient who was evaluated by me for altered mental status. The patient is pretty sleepy and is unable to provide any history. Daughter is there, she provides most of the history. The patient had a fall. She hit her head and she went to [facility]. CT scan of the head was done. She does not know whether the CT of the head and C-spine was done or it was just a CT of the head. In any event, she is not having any neck pain. She does have a UTI. She was living with her daughter before it happened and prior to that, she was living with her more than 60 years who recently. Review of systems indicate that she was admitted with hypotension, increasing confusion since the head injury. One of the records says that she does have some neck pain. The patient does not appear to be complaining of much neck pain to me, but she is pretty sleepy. She did have a CT scan on admission that a CT scan does show a calcified mass, which is old, but no acute changes. REVIEW OF SYSTEMS: A 14-point review of system was carried out, but that is mostly from the daughter. It looks like she had hypotension, this time, she had acute renal injury and Nephrology was consulted in that regard. Her estimated GFR is still 25. She is being followed by multiple consultants including ID. She does have a history of chronic anemia and thrombocytopenia. It looks like she had a recent concussion. Record also indicates she was also hypothermic. She is also being followed by Cardiology who indicated the patient has bradycardia. She does have a history of diabetes and hypothyroidism. PAST MEDICAL HISTORY: The patient's daughter denies any history of dementia. FAMILY HISTORY: Unremarkable. SOCIAL HISTORY: As summarized above. She lives with her daughter now. PHYSICAL EXAMINATION: Indicate she is pretty drowsy. I could not wake her up fully. She woke up for a few seconds when I asked her to move her eyes in multiple directions, she did not do that. Therefore, cranial nerve or higher function examination was very difficult. As far as strength is concerned that was even more difficult. She did not cooperate a whole lot. She can move a [facility] [address] [place] [address] CONSULTATION Name: JACK FAN Room #: 210-P [facility] IN M.R.#: [id number] Admission: 04/01/20 Attend Phys: Jeancarlos Mccormick MD Discharge: Date of : 34 Report #: [id number] little bit all 4 extremities, but I cannot do anything more than that. Her blood pressure is still running about 99/40, respirations 16, pulse is 59. She is a well-developed individual. She does not have any dysmorphic features of eyes, ears and face. IMPRESSION: Pretty difficult to form in this patient. This patient is very drowsy. I suspect she had a concussion and she has encephalopathy because of urinary tract infection. Since she is not getting better, it will be desirable to get an MRI done in this patient. I will see if we can schedule that. I will also go ahead and do a CT of the spine just to make sure there is no pathology there because I do not have any good record that it was cleared. I talked to the daughter and this is what she wants to do and we will do that. <ELECTRONICALLY SIGNED> By: Guille Malcolm MD 04/08/20 1843 1647 03 Guille Malcolm MD /nt
--- NOTE | 2020-04-08 18:43 | EEG ---
[facility] [place] [address] [place] [address] ELECTROENCEPHALOGRAM Name: JACK FAN Room #: 210-P [facility] IN M.R.#: [id number] Admission: 04/01/20 Attend Phys: Jeancarlos Mccormick MD Discharge: Date of : 34 Report #: [id number] THIS REPORT FOR: //name// CC: Jeancarlos Ferrell [facility] DATE OF SERVICE: 04/07/2020 This patient is being evaluated for altered mental status. EEG was done by placing the electrode by standard 10-20 system of electrode placement. Both referential and sequential montages were used for recording. The background activity in this patient's EEG is about 7-8 Hz and 10 microvolt. It is very difficult to tell for sure because it is intermixed with a lot of artifact. The photic stimulation is unremarkable. No active epileptiform activity was noticed. IMPRESSION: This is an abnormal EEG because it is disorganized and poorly formed. That is a nonspecific abnormality, which can occur with encephalopathy, effect of psychotropic medication, dementia, etc. Thank you very much for this referral. <ELECTRONICALLY SIGNED> By: Guille Malcolm MD 04/08/20 1843 1616 1710 Guille Malcolm MD /nt
[2020-04-08 20:46] VITALS: BP 119/48
[2020-04-09 03:36] VITALS: BP 103/60
--- NOTE | 2020-04-09 03:41 | NUR ---
Assumed opt care at 1900. Pt is alert and oriented with no sign of distress noted in pt. Pt is stable and reposition in bed. Denies any pain. Pt is stable. Fall precaution in place. Assessment completed and documented. Scheduled meds administered to pt. Tolerated PO intake. No acute events overnight. Continue to monitor pt. No further needs at this time
[2020-04-09 07:24] VITALS: BP 112/44
[2020-04-09 09:31] LABS: HEMATOCRIT 21.8 % (37.0-47.0); HEMOGLOBIN 7.1 gm/dL (12.0-15.0); MCH 30.8 pg (26.0-34.0); MCHC 32.6 g/dL (28.0-37.0); MCV 94.5 fL (80.0-100.0); RBC 2.31 mil/uL (4.20-5.00); RDW 16.7 % (10.5-14.5); WBC 10.7 thou/uL (4.0-11.0)
[2020-04-09 09:44] LABS: CALCIUM 8.5 mg/dL (8.5-10.1); CREATININE 1.2 mg/dL (0.6-1.0); POTASSIUM 3.7 mmol/L (3.5-5.1)
[2020-04-09 11:58] VITALS: BP 113/52
--- NOTE | 2020-04-09 15:55 | NUR ---
DC to 5N acute rehab on hold today due to new orders CT with contract, video swallow r/o aspiration and hgb 7.1. They will follow and can accept with medically stable.
--- NOTE | 2020-04-09 16:06 | NUR ---
CONSULT RECEIVED FOR 5N ACUTE REHAB. PER ABBY BOB GLASS FITTER, CAN ADMIT TO 5N WHEN MEDICALLY READY. POSSIBLE SUNDAY ADMIT IF MEDICALLY STABLE.
[2020-04-09 17:15] VITALS: BP 108/57
[2020-04-09 20:00] VITALS: BP 106/51
--- NOTE | 2020-04-09 20:32 | NUR ---
RECEIVED PT'S CARE AROUND 0715; PT. ON BED; RESTING WITH EYES CLOSED; EQUAL CHEST RISING NOTICED; SR ON THE MONITOR; NOTICED COUGHING AFTER DRINKING FEW SIPS OF LIQUIDS; SPEECH THERAPY NOTIFIED; NPO DURING THE AM; SWALLOW STUDY ORDERED; GONE FOR THE PROCEDURE AROUND 1000; DIET UPDATED; DAUGHTER UPDATED ABOUT PROCEDURE & POC; ST. UNDERSTANDING; HH LOWER; PHYSICIAN NOTIFIED; NO NEW ORDERS; DURING DR. SRIVASTAVA ROUNDINS UPDATED ABOUT CT RESULTS & WBC TRENDING DURING THE LAST DAYS; DR. SRIVASTAVA TALKED WITH DAUGHTER & PT. AT THE BED SIDE; REQUESTED TO TALK WITH DR. GONZALEZ; DR. FOSTER; TALKED WITH CARLOS; DAUGHTER REQUESTED FACETIME MEETING WITH PHYSICIAN & BROTHERS; DR. GONZALEZ NOTIFIED; MEETING ARRANGED FOR 04/10/2020 DURING ROUNDINGS AFTER 0900; MECHANICAL DESIGN ENGINEER PRODUCTS NOTIFIED; PT. UP TO CHAIR DURING THE EVENING; LOOSE STOOLS THOUGH THE DAY; PHYSICIAN NOTIFIED; MIRALAX HOLD; ASSESSMENT CHARGED; FOLLOWING POC; PASSED ON REPORT;
[2020-04-10 04:15] VITALS: BP 127/58
[2020-04-10 06:46] LABS: HEMATOCRIT 21.2 % (37.0-47.0); MCH 31.2 pg (26.0-34.0); MCHC 32.9 g/dL (28.0-37.0); MCV 94.9 fL (80.0-100.0); RBC 2.23 mil/uL (4.20-5.00); RDW 17.4 % (10.5-14.5); WBC 10.2 thou/uL (4.0-11.0)
[2020-04-10 06:54] LABS: CALCIUM 8.9 mg/dL (8.5-10.1); CREATININE 1.1 mg/dL (0.6-1.0); POTASSIUM 3.7 mmol/L (3.5-5.1)
[2020-04-10 07:15] VITALS: BP 115/57
--- NOTE | 2020-04-10 08:06 | NUR ---
PATIENT SLEPT MOST OF THE SHIFT; PATIENT DROWSY DURING INTERACTIONS; FEMALE CATHETER IN PLACE WITH VERY SCANT AMOUNT OF OUTPUT FROM PATIENT; PATIENT TURNED FREQUENTLY TO PREVENT SKIN BREAKDOWN; SR W/BBB AND 1AVB ON THE MONITOR AT PERIODS THROUGHOUT THE NOC; PATIENT PROGRESSING SLOWLY TOWARD DISCHARGE GOALS; WILL CONTINUE TO MONITOR AND ASSESS PRN.
--- NOTE | 2020-04-10 08:36 | NUR ---
ASSUME CARE 1900. PT/VITALS STABLE. PT LETHARGIC BUT EASILY AROUSABLE. COMMUNICATES NEEDS WELL. A/O X 4. ASSESSMENT CHARTED. PROGRESSING SLOWLY WITH POC. POOR URINE OUTPUT NOTED/ NO INPUT PO OR IV THROUGH THE SHIFT. COMPLAINS ON INTERMITTENT PAIN IN LEFT FOOT. PLAN IS TO CONTINUE TO MONITOR RENAL FUNCTION AND DISCUSS DISCHARGE PLANNING WITH FAMILY. WILL CONTINUE TO MONITOR AND FOLLOW WIHT POC
--- NOTE | 2020-04-10 08:42 | NUR ---
PHONE CALL FROM [employer] STATING THAT US GUIDED PARACENTESIS WILL NOT BE DONE TODAY DUE TO IT BEING A WEEKEND. SHE WILL PAGE DR. STANLEY THE ONCALL PHYSICIAN TO NOTIFY HER OF PROCEDURE. I WILL DISCUSS WITH POLINA BENSON
--- NOTE | 2020-04-10 10:30 | NUR ---
DR. GONZALEZ HERE TO SPEAK WITH [place]
[2020-04-10 11:04] VITALS: BP 111/53
--- NOTE | 2020-04-10 11:55 | NUR ---
CALLED AND TALKED WITH DR. GONZALEZ ON REQUEST FROM THE DAUGHTER THINKING HER MOM MAYBE DEHYDRATED. HE STATES HE IS GOING TO LOOK OVER HER LAB WORK AND SEE HOW THINGS LOOK.
[2020-04-10 15:45] VITALS: BP 118/55
--- NOTE | 2020-04-10 17:15 | NUR ---
TALKED WITH DR. CARLOS HAWKING PT HAVING FINE CRACKLES IN HER BASES AFTER STARTING FLUIDS. STATES SHE NEEDS THEM AND TO MONITOR HER O2 SATURATIONS AND IF HER O2 DEMANDS GO UP WE WILL READRESS. PT NEEDS FLUIDS FOR HIGH SODIUM LEVEL. RESP NOTIFIED OF OVERNIGHT O2. DAUGHTER UPDATED
--- NOTE | 2020-04-10 17:44 | NUR ---
DAUGHTER AT BEDSIDE SINCE 9AM. PT HAS BECOME MORE CONFUSED AND TIRED THE SHIFT HAS GONE ON. DAUGHTER IS CONCERNED. TALKE WITH DR. GONZALEZ REGARDING. PT HAS AN INCREASED SODIUM LEVEL, COULD BE CAUSING. D5 @ 75 STARTED DUE TO SODIUM LEVEL. OVERNIGHT O2 MONITOR GOING TO BE IN PLACE TO WATCH O2 SATURATIONS. PT CURRENLTY ON 2L. WATCH FOR FLUID OVERLOAD. DAUGTHER DID HAVE A TALK WITH DR. GONZALEZ AND A BROTHER TODAY REGARDING PLAN FROM HERE. PLAN FOR THORACENTISIS ON SUNDAY.
[2020-04-10 20:00] VITALS: BP 114/60
[2020-04-11 03:40] VITALS: BP 124/63
[2020-04-11 04:43] LABS: CALCIUM 8.7 mg/dL (8.5-10.1); CREATININE 1.7 mg/dL (0.6-1.0); POTASSIUM 3.7 mmol/L (3.5-5.1)
[2020-04-11 07:22] VITALS: BP 100/43
--- NOTE | 2020-04-11 07:54 | NUR ---
ASSUME CARE 1900. PT/VITALS STABLE. A/O X 4 WITH EPISODES PF CONFUSION NOTED THROUGH THE NIGHT. PT IS VERY LETHARGIC BUT AROUNSES EASILY AND CAN FOLLOW COMMANDS APPROPRIATELY. POOR TOLERANCE TO ACTIVITY. PT/OT CONSULTED. ASSESSMENT CHARTED. POOR PROGRESS TO POC. NO URINE OUTPUT NOTED THROUGH SHIFT. BLADDER SCAN SHOWS 182ML IN BLADDER ONLY. PROFESSOR OF THEATRE NOTIFIED AND ORDERS OF 250ML FLUID BOLUS GIVEN. PLAN IS POSSIBLE PARACENTESIS ON SUNDAY. WILL CONTINUE TO MONITOR ND FOLLOW WITH POC
[2020-04-11 11:35] VITALS: BP 108/48
[2020-04-11 16:00] VITALS: BP 108/51
--- NOTE | 2020-04-11 17:47 | NUR ---
ASSESSMENT CHARTED. PT HAS BEEN SLEEPING MOST OF THIS SHIFT. VERY LETHAGIC. APPETITE POOR. NO URINE OUTPUT THIS SHIFT. DR GONZALEZ NOTIFIED. NEW ORDERS RECEIVED. BLADDER SCANNED SHOWED GREATER THAN 150. CORNEJO PLACED. 700CC IN CORNEJO BAG. DAUGHTER UP DATED ON PT'S PROGRESS. WILL CONTINUE WITH PLAN OF CARE.
[2020-04-11 20:20] VITALS: BP 119/52
--- NOTE | 2020-04-12 07:13 | NUR ---
ASSUMED CARE OF PATIENT AT 1900; VS/STABLE; ASSESSMENTS CHARTED; PT LETHARGIC AND DROWSY AND AT TIMES CONFUSED BUT EASY TO AROUSE OR REORIENT ANSWERS QUESTIONS APPROPRIATELY; 100 ML TOTAL URINE OUTPUT; INCREASED INTEREST IN EATING IN EARLY AM, 240 ML CONSUMED; PATIENT PROGRESS TOWARD POC AND DISCHARGE PROGRESSING VERY SLOWLY; WILL CONTINUE TO MONITOR AND ASSESS PRN.
[2020-04-12 08:16] VITALS: BP 108/59
[2020-04-12 08:35] LABS: HEMOGLOBIN 6.8 gm/dL (12.0-15.0)
[2020-04-12 08:36] LABS: HEMATOCRIT 20.2 % (37.0-47.0); MCH 32.1 pg (26.0-34.0); MCHC 33.5 g/dL (28.0-37.0); MCV 95.6 fL (80.0-100.0); RBC 2.11 mil/uL (4.20-5.00); RDW 18.5 % (10.5-14.5); WBC 10.4 thou/uL (4.0-11.0)
[2020-04-12 08:38] LABS: CALCIUM 8.4 mg/dL (8.5-10.1); CREATININE 2.1 mg/dL (0.6-1.0); POTASSIUM 3.5 mmol/L (3.5-5.1)
[2020-04-12 09:33] LABS: % SATURATION 15 % (20-39); IRON 38 ug/dL (50-170); TIBC 257 ug/dL (250-450)
[2020-04-12 13:28] LABS: CLARITY TURBID; COLOR DARK RED; SOURCE ABDOMINAL; TOTAL VOLUME 35 mL
[2020-04-12 13:52] VITALS: BP 117/55; BP 123/58
[2020-04-12 15:45] VITALS: BP 114/54
[2020-04-12 16:15] LABS: BF NUCLEATED CELLS 2773 /mm3
[2020-04-12 16:16] LABS: BF RBC 3470520 /mm3
[2020-04-12 16:17] LABS: BF MACROPHAGE 7 %; BF NEUTROPHILS 18 %
[2020-04-12 17:36] VITALS: BP 123/58
[2020-04-12 20:00] VITALS: BP 105/49
[2020-04-13 04:07] LABS: HEMATOCRIT 24.7 % (37.0-47.0); HEMOGLOBIN 8.3 gm/dL (12.0-15.0); MCH 31.3 pg (26.0-34.0); MCHC 33.6 g/dL (28.0-37.0); MCV 93.2 fL (80.0-100.0); RBC 2.65 mil/uL (4.20-5.00); RDW 18.7 % (10.5-14.5); WBC 10.5 thou/uL (4.0-11.0)
[2020-04-13 04:32] LABS: CALCIUM 8.4 mg/dL (8.5-10.1); CREATININE 2.5 mg/dL (0.6-1.0); POTASSIUM 4.2 mmol/L (3.5-5.1)
[2020-04-13 05:00] VITALS: BP 118/58
--- NOTE | 2020-04-13 08:19 | NUR ---
ASSUME CARE 1900. PT/VITALS STABLE. PT MORE ALERT THROUGH THE NIGHT. ORIENTED X 4/PLEASANT. COMMUNICATES NEEDS WELL AND FOLLOWS COMMANDS. DENIES ANY PAIN. NO DISTRESS NOTED THROUGH THE NIGHT. ADEQUATE REST NOTED. OLIGURIA CONTINUES WITH PT ON IVF. ASSESSMENT CHARTED. POOR PROGRESS WITH OVERALL HEALTH. PLAN IS POSSIBLE DISCHARGE WITHIN A FEW DAYS . MORE DISCUSSIONS WITH FAMILY NEEDED TO BE CERTAIN OF HOW TO DISCHARGE PT. WILL CONTINUE TO MONITOR AND FOLLOW WITH POC
[2020-04-13 08:22] VITALS: BP 108/59
--- NOTE | 2020-04-13 09:20 | NUR ---
Son called inquiring if mother was being allowed to make her own decisions on post-acute care. Assured the son the patient is actively participating her care in all aspects. Son would like for mother to go at some time if needed to [facility]. Explained I would inform the team. Son was tangential and became angry at one point in the conversation over his frustration with his sister not allowing him to participate in care decisions. Again I reiterated that all aspects of discharge planning are not based solely on an individual and that his mother's discharge plan would be based on medical recommendations and allowing her to participate in this process. The son did calm and apologized for raising his voice and thanked me for listening to him. Informed SW , Risk Management and Attending MD of the above.
[2020-04-13 11:30] VITALS: BP 115/54
[2020-04-13] MEDS ORDERED: MSL20MG/ML PO (13:34)
--- NOTE | 2020-04-13 14:26 | NUR ---
PT DISCHARGING TODAY TO HOSPICE HOUSE FAXED DC ORDERS/SUMMARY TO FACILITY RECEIVED CONFIRMATION AND ARRANGED TRANSPORT BY AMBULANCE ([facility]) FOR FIRST AVAILABLE WHICH COULD BE [id number]. NOTIFIED UNIT OF TRANSPORT TIME AND COPY OF AMB. FORM WITH CHART COPY.
--- NOTE | 2020-04-13 14:38 | NUR ---
ASSUMED CARE AT CHANGE OF SHIFT. ORIENTED 3, DROWSY/SLEEPY, FAMILY BEDSIDE WITH PATIENT AND THE DECISION TO MOVE PT TO HOSPICE HOUSE IS AGREED UPON. WILL DC VIA AMBULANCE. LEFT MESSAGE TO HOSPICE HOUSE TO GIVE REPORT AWAITING CALL BACK. IV TO REMAIN IN PLACE. CORNEJO WITH >50CC BM TODAY. REQUIRES ASSISTANCE WITH MEALS, PUREED/HONEY THICK LIQUIDS. TELE REMOVED FOR DISHCARGE.
--- NOTE | 2020-04-13 17:06 | PATH ---
[facility] [address] [place] [address] PATHOLOGY RPT PROCEDURE Name: JACK FAN Room #: 210-P ADM IN M.R.#: [id number] Admission: 04/01/20 Date of : 33 Discharge: Report #: [id number] Path Case #: [id number] Note [facility] Accession Number: [id number] TESTS RESULT FLAG UNITS REF RANGE LAB Clinician Provided Cytology Information No. of containers..01 Other (Miscellaneous) Source: ASCITES DIAGNOSIS: 02 ASCITES NEGATIVE FOR MALIGNANT EPITHELIAL CELLS. REACTIVE MESOTHELIAL CELLS ARE PRESENT. THIS INTERPRETATION INCLUDES EVALUATION OF A CELL BLOCK. Pathologist ICD10: 02 R79.89 Signed out by: Estrellita Tolentino MD, Pathologist NPI- [id number] Performed by: Milagros Romero, Commercial Counsel ([facility]) Gross description: 01 15ML, RED, 1 TP 1 CB /LCS 04/12/2020 1634 Local FLAG LEGEND: L-Low Normal,H-High Normal,LL-Alert Low,HH-Alert High <-Panic Low,>-Panic High,A-Abnormal,AA-Critical Abnormal Performed at: [address] [place] [address] Travis Wallace MD, [address] [address] Estrellita Tolentino MD, Specimen Comment: A courtesy copy of this report has been sent to [phone], [phone] Specimen Comment: [phone] Specimen Comment: Report sent to ,DR ASTUDILLO / DR KAMARA Specimen Comment: A duplicate report has been generated due to demographic updates. Performed at: [address], [place], [place] [id number] MD Travis Wallace MD Phone: [phone]
--- NOTE | 2020-04-13 17:10 | NUR ---
Sp with Dr Gardner, dtr and son at bedside. patient is electing hospice services. Reviewed Hospice services with family. They are interested in eval with Hospice House. Hospice evaled and accepting. Outside DNR completed. [facility] for 1600. Chart copied. RN has number for report. Family in agreement to transfer to hospice house today.
== END 2020-04-13 17:32 | disposition hospice, home (50) | DRG 871 ==
LOC: ER 01:49 → 2N 04:16 → ICU 04:16 → EROBS 04:16 → ICU 05:07 → 2N 04-03 15:29
PROVIDERS: Emergency Medicine; Hospitalist; Internal Medicine Cardiovascular Disease; Nurse Practitioner; Nurse Practitioner Family; ADMIT Internal Medicine; ATTEND Internal Medicine
PROC: 02HV33Z Insertion of Infusion Device into Superior Vena Cava, Percutaneous Approach (ICD-10-PCS; 2020-04-01)
PROC: B548ZZA Ultrasonography of Superior Vena Cava, Guidance (ICD-10-PCS; 2020-04-01)
PROC: 30233N1 Transfusion of Nonautologous Red Blood Cells into Peripheral Vein, Percutaneous Approach (ICD-10-PCS; principal; 2020-04-07)
PROC: 0W9G3ZZ Drainage of Peritoneal Cavity, Percutaneous Approach (ICD-10-PCS; 2020-04-12)
DX: A41.51 Sepsis due to Escherichia coli [E. coli] (principal); G92 Toxic encephalopathy; J96.01 Acute respiratory failure with hypoxia; N17.0 Acute kidney failure with tubular necrosis; N39.0 Urinary tract infection, site not specified; E87.0 Hyperosmolality and hypernatremia; D62 Acute posthemorrhagic anemia; C78.6 Secondary malignant neoplasm of retroperitoneum and peritoneum; I50.22 Chronic systolic (congestive) heart failure; I42.9 Cardiomyopathy, unspecified; B96.20 Unspecified Escherichia coli [E. coli] as the cause of diseases classified elsewhere; E87.70 Fluid overload, unspecified; I95.9 Hypotension, unspecified; E87.5 Hyperkalemia; I25.10 Atherosclerotic heart disease of native coronary artery without angina pectoris; E03.9 Hypothyroidism, unspecified; E78.5 Hyperlipidemia, unspecified; K21.9 Gastro-esophageal reflux disease without esophagitis; M19.90 Unspecified osteoarthritis, unspecified site; I48.0 Paroxysmal atrial fibrillation; E86.0 Dehydration; D69.6 Thrombocytopenia, unspecified; K57.90 Diverticulosis of intestine, part unspecified, without perforation or abscess without bleeding; I08.3 Combined rheumatic disorders of mitral, aortic and tricuspid valves; K74.60 Unspecified cirrhosis of liver; E11.51 Type 2 diabetes mellitus with diabetic peripheral angiopathy without gangrene; I11.0 Hypertensive heart disease with heart failure; E78.00 Pure hypercholesterolemia, unspecified; Z66 Do not resuscitate; Z51.5 Encounter for palliative care; Z95.1 Presence of aortocoronary bypass graft; Z79.01 Long term (current) use of anticoagulants; Z79.899 Other long term (current) drug therapy; Z79.82 Long term (current) use of aspirin; Z91.040 Latex allergy status; Z88.2 Allergy status to sulfonamides; Z91.09 Other allergy status, other than to drugs and biological substances; Z87.891 Personal history of nicotine dependence; Z85.038 Personal history of other malignant neoplasm of large intestine; Z85.3 Personal history of malignant neoplasm of breast; Z85.828 Personal history of other malignant neoplasm of skin; Z90.49 Acquired absence of other specified parts of digestive tract
CPT/HCPCS: 10078; 10081; 27000